=== PATIENT | female | born 1970 | race Two or more races ===

== ENCOUNTER 2020-03-31 09:25 | Outpatient (REF) | payer OTHER, SELFPAY ==
[2020-03-31 11:01] LABS: MANUAL DIFF FLAG NO
[2020-03-31 11:18] LABS: Estimated Average Glucose 303 mg/dL; Hemoglobin A1c % 12.2 %
[2020-03-31 11:32] LABS: Basophils Percent Auto 0.4 % (0-2); Eosinophils Absolute Auto 0.1 X10*3/uL (0.0-0.4); Eosinophils Percent Auto 1.3 % (0-4); Hematocrit 28.5 % (37-47); Hemoglobin 7.4 g/dl (12.0-16.0); Imm Gran Abs Auto 0.03 X10*3/uL (0.00-0.03); Imm Gran Pct Auto 0.3 % (0.0-0.4); Lymphocytes Percent Auto 21.8 % (20-40); Mean Corpuscular Hemoglobin 17.9 pg (27.0-33.0); Mean Platelet Volume 11.4 fL (9.4-12.3); Monocytes Absolute Auto 0.5 X10*3/uL (0.1-1.2); Monocytes Percent Auto 5.4 % (2-11); NRBC Pct Auto 0.2 /100WBC (0.0-0.2); Neutrophils Absolute Auto 6.3 X10*3/uL (2.0-8.3); Neutrophils Percent Auto 70.8 % (45-73); Platelet Count 352 X10*3/uL (160-400); Red Blood Count 4.13 X10*6/uL (4.20-5.50); Red Cell Distribution Width 20.5 % (11.0-16.0); White Blood Count 8.9 X10*3/uL (4.8-10.8)
[2020-03-31 11:47] LABS: Alanine Aminotransferase 91 U/L (0-31); Albumin Level 3.9 g/dL (3.5-5.0); Alkaline Phosphatase 81 U/L (39-117); Anion Gap 14 (12-20); Aspartate Amino Transferase 141 U/L (5-31); Bilirubin Total 0.9 mg/dL (0.0-1.0); Blood Urea Nitrogen 11 mg/dL (9-16); Calcium 8.7 mg/dL (8.4-10.2); Carbon Dioxide 25 mmol/L (22-29); Chloride 99 mmol/L (96-108); Estimated Glomerular Filt Rate > 60; Magnesium 1.9 mg/dL (1.6-2.6); Potassium 4.5 mmol/l (3.3-5.1); Sodium 133 mmol/L (135-145); Total Protein 6.6 g/dL (6.5-8.0)
[2020-03-31 11:55] LABS: Glucose Fasting 401 mg/dL (60-99)
[2020-04-07 02:47] LABS: Fructosamine 454 umol/L (205-285)
== END 2020-03-31 09:26 | disposition home or self-care (01) ==
LOC: HO.WFDLDS 09:25
PROVIDERS: Visit Provider Family Medicine
DX: E11.65 Type 2 diabetes mellitus with hyperglycemia (principal); R53.81 Other malaise; R53.83 Other fatigue; Z00.00 Encounter for general adult medical examination without abnormal findings; R73.9 Hyperglycemia, unspecified
CPT/HCPCS: 36415; 80053; 82985; 83036; 83735; 85025

== ENCOUNTER 2020-04-21 08:42 | Outpatient (REF) | payer OTHER, SELFPAY ==
[2020-04-21 10:53] LABS: Basophils Percent Auto 0.3 % (0-2); MANUAL DIFF FLAG SCAN; Monocytes Absolute Auto 0.5 X10*3/uL (0.1-1.2); NRBC Pct Auto 0.2 /100WBC (0.0-0.2); SCAN SMEAR FLAG 1
[2020-04-21 10:55] LABS: Eosinophils Absolute Auto 0.1 X10*3/uL (0.0-0.4); Eosinophils Percent Auto 1.2 % (0-4); Hematocrit 26.5 % (37-47); Imm Gran Abs Auto 0.02 X10*3/uL (0.00-0.03); Imm Gran Pct Auto 0.2 % (0.0-0.4); Lymphocytes Percent Auto 22.8 % (20-40); Mean Corpuscular Hemoglobin 17.6 pg (27.0-33.0); Mean Corpuscular Volume 67.4 fL (80-98); Mean Platelet Volume 11.1 fL (9.4-12.3); Monocytes Percent Auto 5.7 % (2-11); Neutrophils Absolute Auto 6.2 X10*3/uL (2.0-8.3); Neutrophils Percent Auto 69.8 % (45-73); Platelet Count 392 X10*3/uL (160-400); Red Blood Count 3.93 X10*6/uL (4.20-5.50); Red Cell Distribution Width 21.4 % (11.0-16.0)
[2020-04-21 11:07] LABS: Hemoglobin 6.9 g/dl (12.0-16.0); PLT ABN DIST 1
[2020-04-21 11:31] LABS: SLIDE REVIEW VERIFIED
[2020-04-21 11:42] LABS: TSH reflex Free T4 1.61 mIU/mL (0.32-4.0)
== END 2020-04-21 08:43 | disposition home or self-care (01) ==
LOC: HO.WFDLDS 08:42
PROVIDERS: PCP Family Medicine; Visit Provider Family Medicine
DX: D50.9 Iron deficiency anemia, unspecified (principal); R53.81 Other malaise; R53.83 Other fatigue; Z00.00 Encounter for general adult medical examination without abnormal findings
CPT/HCPCS: 36415; 84443; 85025; 85060

== ENCOUNTER 2020-04-22 10:00 | Emergency (ER) | payer OTHER, SELFPAY ==
[2020-04-22] VITALS (10 sets, daily range): BP systolic 102–139; BP diastolic 51–77; PULSE 91–103; RESP 15–20; TEMP 36.6–37.5; O2SAT 100
--- NOTE | 2020-04-22 10:32 | ECG_ITS ---
Test Reason : WEAKNESS Blood Pressure : / mmHG Vent. Rate : 100 BPM Atrial Rate : 100 BPM P-R Int : 158 ms QRS Dur : 076 ms QT Int : 330 ms P-R-T Axes : 054 009 016 degrees QTc Int : 425 ms Normal sinus rhythm Normal ECG No previous ECGs available Referred By: Radha Cronin Electronically Signed By:Rolf Bravo
--- NOTE | 2020-04-22 10:54 | ED_ITS ---
HPI - General Adult General Chief complaint: Weakness Time Seen by Provider: 04/22/20 10:53 Source: patient Mode of arrival: ambulatory Limitations: no limitations History of Present Illness HPI narrative: sent for transfusion thought she was going to have one in short stay but orders not in, here for transfusion Hgb 6.9, this will be second transfusion has hx of heavy menses, no bleeding since IUD 1.5 weeks ago, iron is hard for her to take Onset (ago): week(s) Severity: moderate Pain Consistency: constant Relieving factors: rest Exacerbating factors: movement Associated symptoms: malaise and shortness of breath Treatments prior to arrival: none Related Data Home Medications Medication Instructions Recorded Confirmed clonazepam 0.5 mg tablet 0.5 mg PO BID PRN 03/30/20 ibuprofen 800 mg tablet 800 mg PO Q8H 03/30/20 levothyroxine 200 mcg tablet 250 mcg PO DAILY tab 03/30/20 norethindrone acetate 5 mg tablet 0 mg PO 03/30/20 nortriptyline 25 mg capsule 25 mg PO BEDTIME 04/20/20 Previous Rx's Medication Instructions Recorded levothyroxine 125 mcg tablet 250 mcg PO DAILY 90 Days #180 tab 03/09/20 ferrous sulfate 325 mg (65 mg 325 mg PO DAILY 90 Days #90 tab 04/06/20 iron) tablet fluconazole 150 mg tablet 150 mg PO ONCE 1 Days #1 tab 04/06/20 metformin 500 mg tablet 1,000 mg PO BID 90 Days #360 tab 04/06/20 glipizide 5 mg tablet 5 mg PO DAILY 30 Days #30 tab 04/20/20 polyethylene glycol 3350 17 gram 17 g PO DAILY PRN 30 Days #30 ea 04/20/20 oral powder packet Allergies Allergy/AdvReac Type Severity Reaction Status Date / Time codeine [CODEINE] Allergy Unknown ITCHING Verified 04/06/20 08:42 morphine [MORPHINE] Allergy Unknown ITCHING Verified 04/06/20 08:42 Review of Systems Review of Systems: Constitutional : No Fever, No Chills, pos fatigue ENT/Mouth : No sore throat, No Rhinorrhea, No Swallowing Difficulty Eyes: No Eye Pain, No Swelling, No Redness Cardiovascular : No Chest Pain, positive SOB, No Orthopnea, no Edema Respiratory : No Cough, No Sputum, No Wheezing, positive dyspnea Gastrointestinal : No Nausea, No Vomiting, No Diarrhea, No abdominal Pain, No Hematochezia, No Melena Genitourinary : No Dysuria, No Urinary Frequency, No Hematuria Musculoskeletal : No joint pain, No Myalgias Skin : No Skin Lesions, No rash Neuro : No Weakness, No Numbness, No Dizziness, No Headache Psych : No Anxiety/Panic, No Depression Heme/Lymph: No Bruising, No Lymphadenopathy Endocrine : No Polyuria, No Polydipsia All other systems reviewed and are negative [facility] Past Medical History Attestation statement: The following information was validated with the patient. Medical History (Updated 04/22/20 @ 12:20 by Radha Cronin DO) Anemia Diabetes Social History Social History (Updated 04/22/20 @ 10:55 by Radha Cronin DO) Smoking Status: Never smoker Use of substances other than those prescribed or required for medical reasons: No Advance Directives: No Advance Directives Information Provided: Yes Physical Exam Vital Signs: Vital Signs: Last Vital Signs Temp 99.0 F 04/22/20 15:21 Pulse 92 04/22/20 15:21 Resp 15 04/22/20 15:21 BP 109/55 L 04/22/20 15:21 Pulse Ox 100 04/22/20 14:00 Appearance: Alert. Oriented X3. No acute distress. Eyes: Pupils equal, round and reactive to light. ENT: Pharynx normal. Neck: Normal inspection. Neck supple. CVS: Normal heart rate and rhythm. Pulses normal. Respiratory: No respiratory distress. Breath sounds normal. Abdomen: Soft and non-tender. Skin: Skin warm and dry. pale skin color. Normal skin turgor. Extremities: No lower extremity edema. No calf ttp Neuro: Oriented X 3. No motor deficit. No sensory deficit. Course Course Course Narrative: feels better after transfusion stable for DC Medical Decision Making MDM Narrative Medical decision making narrative: 49 yo female with known anemia here for transfusion due to chronic issue, her bleeding has resolved since IUD, will obtain labs, give 2 UPRBCs follow up with PCP Lab Data Result diagrams: 04/22/20 10:50 04/22/20 10:50 Labs: Lab Results 04/22/20 04/22/20 04/22/20 Range/Units 10:50 10:50 10:51 WBC 8.0 (4.8-10.8) X10*3/uL RBC 3.97 L (4.20-5.50) X10*6/uL Hgb 7.0 L* (12.0-16.0) g/dl Hct 26.6 L (37-47) % MCV 67.0 L (80-98) fL MCH 17.6 L (27.0-33.0) pg MCHC 26.3 L (31.0-35.0) g/dl RDW 21.1 H (11.0-16.0) % Plt Count 381 (160-400) X10*3/uL MPV 10.0 (9.4-12.3) fL Immature Gran % (Auto) 0.6 H (0.0-0.4) % Neut % (Auto) 73.1 H (45-73) % Lymph % (Auto) 19.0 L (20-40) % [place] % (Auto) 5.5 (2-11) % Eos % (Auto) 1.5 (0-4) % Baso % (Auto) 0.3 (0-2) % Lymph # (Auto) 1.5 (1.2-4.9) X10*3/uL [place] # (Auto) 0.4 (0.1-1.2) X10*3/uL Eos # (Auto) 0.1 (0.0-0.4) X10*3/uL Baso # (Auto) 0.0 (0.0-0.2) X10*3/uL Abs Immat Gran (auto) 0.05 H (0.00-0.03) X10*3/uL Absolute Neuts (auto) 5.9 (2.0-8.3) X10*3/uL Absolute Nucleated RBC 0.000 (0.0-0.012) X10*3/uL Nucleated RBC % (auto) 0.0 (0.0-0.2) /100WBC Sodium 138 (135-145) mmol/L Potassium 4.5 (3.3-5.1) mmol/l Chloride 102 (96-108) mmol/L Carbon Dioxide 27 (22-29) mmol/L Anion Gap 14 (12-20) BUN 10 (9-16) mg/dL Creatinine 0.68 (0.5-1.4) mg/dL Estim Creat Clear Calc TNP Estimated GFR > 60 Random Glucose 134 H (60-115) mg/dL Calcium 8.9 (8.4-10.2) mg/dL Total Bilirubin 0.8 (0.0-1.0) mg/dL AST 56 H (5-31) U/L ALT 48 H (0-31) U/L Alkaline Phosphatase 70 (39-117) U/L Total Protein 6.7 (6.5-8.0) g/dL Albumin 4.1 (3.5-5.0) g/dL Blood Type A Positive Antibody Screen NEGATIVE Crossmatch See Detail ECG Data Attestation: I personally reviewed and interpreted this ECG as follows: Interpretation: Rate: 100 Rhythm: sinus tachycardia [place]: normal Normal P waves. Normal [place]. Normal QRS complex. ST T wave : normal, no LOLI qTC: normal prior studies: no acute ischemia The study has been interpreted contemporaneously by me. . Critical Care Time Critical Care Time Critical Care Time: Yes Total Critical Care Time: 35 Attestation: patient received 2 UPRBCs over a few hours for hemoglobin 6.9 Discharge Plan Discharge Clinical Impression: Anemia due to blood loss Patient Disposition: Home, Self-Care Instructions: Anemia (ED), Blood Transfusion (DC) Additional Instructions: return to ED for any worsening symptoms or concerns Prescriptions: No Action levothyroxine 125 mcg tablet 250 mcg PO DAILY 90 Days Qty: 180 RF: 3 metformin 500 mg tablet 1,000 mg PO BID 90 Days Qty: 360 RF: 3 ferrous sulfate 325 mg (65 mg iron) tablet 325 mg PO DAILY 90 Days Qty: 90 RF: 0 fluconazole [Diflucan] 150 mg tablet 150 mg PO ONCE 1 Days Qty: 1 RF: 0 nortriptyline 25 mg capsule 25 mg PO BEDTIME RF: 0 polyethylene glycol 3350 [Miralax] 17 gram powder in packet 17 g PO DAILY PRN (Reason: constipation) 30 Days Qty: 30 RF: 2 glipizide 5 mg tablet 5 mg PO DAILY 30 Days Qty: 30 RF: 1 norethindrone acetate 5 mg tablet 0 mg PO RF: 0 clonazepam 0.5 mg tablet 0.5 mg PO BID PRNRF: 0 ibuprofen 800 mg tablet 800 mg PO Q8H RF: 0 levothyroxine 200 mcg tablet 250 mcg PO DAILY RF: 0 Referrals: Physician,Unknown [Primary Care Provider] - 2 days (as needed) Stand Alone Forms: Work/School Release
[2020-04-22 11:02] LABS: Basophils Percent Auto 0.3 % (0-2); Eosinophils Absolute Auto 0.1 X10*3/uL (0.0-0.4); Eosinophils Percent Auto 1.5 % (0-4); Hematocrit 26.6 % (37-47); Imm Gran Abs Auto 0.05 X10*3/uL (0.00-0.03); Imm Gran Pct Auto 0.6 % (0.0-0.4); Lymphocytes Absolute Auto 1.5 X10*3/uL (1.2-4.9); MANUAL DIFF FLAG NO; Mean Corpuscular HGB Conc 26.3 g/dl (31.0-35.0); Mean Corpuscular Hemoglobin 17.6 pg (27.0-33.0); Monocytes Absolute Auto 0.4 X10*3/uL (0.1-1.2); Monocytes Percent Auto 5.5 % (2-11); Neutrophils Absolute Auto 5.9 X10*3/uL (2.0-8.3); Neutrophils Percent Auto 73.1 % (45-73); Platelet Count 381 X10*3/uL (160-400); Red Blood Count 3.97 X10*6/uL (4.20-5.50); Red Cell Distribution Width 21.1 % (11.0-16.0)
--- NOTE | 2020-04-22 11:17 | PC.NURSE ---
TRIAGE, LABS , AND MEDS ALL ON PAPER DOCUMENTATION, SEE PAPERWORK FOR TIMES/ADMINISTRATION.
[2020-04-22 11:35] LABS: Alanine Aminotransferase 48 U/L (0-31); Albumin Level 4.1 g/dL (3.5-5.0); Alkaline Phosphatase 70 U/L (39-117); Anion Gap 14 (12-20); Aspartate Amino Transferase 56 U/L (5-31); Bilirubin Total 0.8 mg/dL (0.0-1.0); Blood Urea Nitrogen 10 mg/dL (9-16); Calcium 8.9 mg/dL (8.4-10.2); Carbon Dioxide 27 mmol/L (22-29); Chloride 102 mmol/L (96-108); Estimated Glomerular Filt Rate > 60; Glucose Random 134 mg/dL (60-115); Potassium 4.5 mmol/l (3.3-5.1); Sodium 138 mmol/L (135-145); Total Protein 6.7 g/dL (6.5-8.0)
--- NOTE | 2020-04-22 14:23 | PC.NURSE ---
first unit of blood continues to infuse, running slowly.
[2020-04-23 08:40] VITALS: BMI 27.4
== END 2020-04-22 19:45 | disposition home or self-care (01) ==
PROVIDERS: Emergency Provider Emergency Medicine
DX: D50.0 Iron deficiency anemia secondary to blood loss (chronic) (principal); E11.9 Type 2 diabetes mellitus without complications
CPT/HCPCS: 36415; 36430; 80053; 85025; 86850; 86900; 86901; 86920; 86923; 93005; 99283; 99285; 99291; P9016

== ENCOUNTER 2020-05-18 11:21 | Outpatient (REF) | payer OTHER, SELFPAY ==
[2020-05-18 13:50] LABS: Basophils Percent Auto 0.4 % (0-2); Eosinophils Absolute Auto 0.2 X10*3/uL (0.0-0.4); Eosinophils Percent Auto 1.8 % (0-4); Hematocrit 34.2 % (37-47); Hemoglobin 9.4 g/dl (12.0-16.0); Imm Gran Abs Auto 0.03 X10*3/uL (0.00-0.03); Imm Gran Pct Auto 0.3 % (0.0-0.4); Lymphocytes Absolute Auto 2.2 X10*3/uL (1.2-4.9); Lymphocytes Percent Auto 21.6 % (20-40); Mean Corpuscular HGB Conc 27.5 g/dl (31.0-35.0); Mean Corpuscular Hemoglobin 20.4 pg (27.0-33.0); Mean Corpuscular Volume 74.3 fL (80-98); Mean Platelet Volume 10.5 fL (9.4-12.3); Monocytes Absolute Auto 0.6 X10*3/uL (0.1-1.2); Monocytes Percent Auto 6.2 % (2-11); Neutrophils Percent Auto 69.7 % (45-73); Platelet Count 467 X10*3/uL (160-400); Red Cell Distribution Width 26.6 % (11.0-16.0)
[2020-05-18 13:52] LABS: MANUAL DIFF FLAG NO
[2020-05-18 14:34] LABS: Anion Gap 15 (12-20); Blood Urea Nitrogen 12 mg/dL (9-16); Calcium 9.5 mg/dL (8.4-10.2); Carbon Dioxide 28 mmol/L (22-29); Chloride 103 mmol/L (96-108); Estimated Glomerular Filt Rate > 60; Glucose Fasting 117 mg/dL (60-99); Iron 22 mcg/dL (30-160); Percent Iron Saturation 5 % (15-50); Potassium 5.2 mmol/l (3.3-5.1); Sodium 141 mmol/L (135-145); Total Iron Binding Capacity 408 mcg/dL (228-428); Unsaturated Iron Binding 386 ug/dL
== END 2020-05-18 11:22 | disposition home or self-care (01) ==
LOC: HO.WFDLDS 11:21
PROVIDERS: PCP Family Medicine; Visit Provider Family Medicine
DX: E11.65 Type 2 diabetes mellitus with hyperglycemia (principal); D50.9 Iron deficiency anemia, unspecified
CPT/HCPCS: 36415; 80048; 83540; 85025

== ENCOUNTER → 2020-05-29 09:04 | Outpatient (BNVA) | payer OTHER, SELFPAY | PROVIDERS: PCP Family Medicine; Referring Provider Family Medicine; Visit Provider Internal Medicine Endocrinology, Diabetes & Metabolism | DX: E03.8 Other specified hypothyroidism (principal); E06.3 Autoimmune thyroiditis; E66.01 Morbid (severe) obesity due to excess calories | CPT/HCPCS: 99202 ==

== ENCOUNTER 2020-05-29 10:23 | Outpatient (REF) | payer OTHER, SELFPAY ==
[2020-05-29 15:00] LABS: Free T4 (Free Thyroxine) 1.25 ng/dL (0.71-1.85); Thyroid Stimulating Hormone 0.63 uIU/mL (0.32-4.0); Vitamin D 25-OH Total 27.1 ng/mL (>30)
[2020-05-29 15:02] LABS: Vitamin B12 218 pg/mL (200-900)
[2020-05-30 13:47] LABS: Immunoglobulin A 269 mg/dL (47-310)
[2020-06-02 03:17] LABS: Transglutaminase Ab IgG 1 U/mL
[2020-06-03 11:57] LABS: Endomysial IgA Antibody Negative (Negative)
== END 2020-05-29 10:24 | disposition home or self-care (01) ==
LOC: HO.10HDL 10:23
PROVIDERS: Visit Provider Internal Medicine Endocrinology, Diabetes & Metabolism
DX: E66.01 Morbid (severe) obesity due to excess calories (principal); E03.8 Other specified hypothyroidism; E06.3 Autoimmune thyroiditis
CPT/HCPCS: 36415; 82306; 82607; 82784; 83516; 84439; 84443; 86255; 86256

== ENCOUNTER 2020-06-04 12:31 | Outpatient (REF) | payer OTHER, SELFPAY ==
--- NOTE | ~2020-06-04 | US_ITS ---
EXAMINATION: US THYROID CLINICAL INFORMATION: Hyperthyroidism. COMPARISON: None TECHNIQUE: Linear transducer grayscale and color Doppler examination with attention to the region of the thyroid. FINDINGS: SIZE: Measurements of the thyroid lobes and nodules are given in sagittal, anteroposterior and transverse dimensions respectively. Right Thyroid Lobe: 5.1 x 1.7 x 1.6 cm, volume 7.0 mL. Parenchyma: The gland echotexture is heterogeneous. Thyroid vascularity is normal. Left Thyroid Lobe: 6.0 x 2.5 x 1.0 cm, volume 7.7 mL. Parenchyma: The gland echotexture is heterogeneous. Thyroid vascularity is normal. Isthmus: 0.25 cm in maximum AP dimension. Estimated total number of nodules greater than or equal to 1 cm: one. Advanced Practice Nurse Psychotherapist nodules are described as follows: 1. Location: Right mid pole. Size: 0.7 x 0.4 x 0.5 cm, volume 0.07 mL. Nodule characteristics: Composition: Solid (2). Echogenicity: Hyperechoic (1). Shape: Not taller than wide (0). Margins: Smooth (0). Echogenic Foci: None (0). ACR TI-RADS total points: 4 ACR TI-RADS category: 4 2. Location: Left lower pole. Size: 1.2 x 0.7 x 0.5 cm, volume 0.2 mL. Nodule characteristics: Composition: Solid (2). Echogenicity: Hyperechoic (1). Shape: Taller than wide (3). Margins: Ill-defined (0). Echogenic Foci: None (0). ACR TI-RADS total points: 7 ACR TI-RADS category: 5 NODES: No lymphadenopathy is seen in the tissue surrounding the thyroid gland. US/US thyroid IMPRESSION: Heterogenous thyroid gland with two nodules in the right midpole and left lower pole. Nodule in the left lower pole is very suspicious. Recommend a fine-needle aspiration or short term 6 month follow-up. ACR TI-RADS RECOMMENDATIONS: Ultrasound-guided fine-needle aspiration, followup ultrasound, no further follow up. * TR1 (0 point) and TR 2 (2 points): No FNA or follow up * TR3 (3 points): FNA if more than or equal to 2.5 cm in maximum dimension, follow up in 1, 3 and 5 years if 1.5 to 2.4 cm in maximum dimension. * TR4 (4-6 points): FNA if more than or equal to 1.5 cm in maximum dimension, follow up in 1, 2, 3 and 5 years if 1 to 1.4 cm in maximum dimension. * TR5 (more than or equal to 7 points): FNA if more than or equal to 1 cm in maximum dimension, follow up every year for 5 years if 0.5 to 0.9 cm in maximum dimension. * TR3, TR4 or TR5 nodules that are below the size threshold for follow up receive no follow up.
== END 2020-06-04 12:32 | disposition home or self-care (01) ==
LOC: HO.US 12:31
PROVIDERS: Visit Provider Internal Medicine Endocrinology, Diabetes & Metabolism
DX: E06.3 Autoimmune thyroiditis (principal); E03.8 Other specified hypothyroidism
CPT/HCPCS: 76536

== ENCOUNTER 2020-06-11 08:38 | Outpatient (REF) | payer OTHER, SELFPAY ==
[2020-06-11 11:35] LABS: Imm Gran Abs Auto 0.02 X10*3/uL (0.00-0.03); Imm Gran Pct Auto 0.2 % (0.0-0.4); MANUAL DIFF FLAG SCAN; Mean Corpuscular Volume 75.5 fL (80-98); SCAN SMEAR FLAG 1
[2020-06-11 11:36] LABS: Basophils Percent Auto 0.4 % (0-2); Eosinophils Absolute Auto 0.1 X10*3/uL (0.0-0.4); Eosinophils Percent Auto 1.3 % (0-4); Hematocrit 37.5 % (37-47); Hemoglobin 10.4 g/dl (12.0-16.0); Lymphocytes Absolute Auto 1.9 X10*3/uL (1.2-4.9); Lymphocytes Percent Auto 19.9 % (20-40); Mean Corpuscular HGB Conc 27.7 g/dl (31.0-35.0); Mean Corpuscular Hemoglobin 20.9 pg (27.0-33.0); Mean Platelet Volume 10.2 fL (9.4-12.3); Monocytes Absolute Auto 0.5 X10*3/uL (0.1-1.2); Monocytes Percent Auto 5.7 % (2-11); Neutrophils Absolute Auto 6.9 X10*3/uL (2.0-8.3); Neutrophils Percent Auto 72.5 % (45-73); Platelet Count 416 X10*3/uL (160-400); Red Blood Count 4.97 X10*6/uL (4.20-5.50); Red Cell Distribution Width 25.1 % (11.0-16.0); White Blood Count 9.5 X10*3/uL (4.8-10.8)
[2020-06-11 11:37] LABS: PLT ABN DIST 1
[2020-06-11 11:38] LABS: SLIDE REVIEW VERIFIED
[2020-06-11 11:54] LABS: Estimated Average Glucose 120 mg/dL; Hemoglobin A1c % 5.8 %
[2020-06-11 12:01] LABS: Alanine Aminotransferase 28 U/L (0-31); Albumin Level 4.1 g/dL (3.5-5.0); Alkaline Phosphatase 62 U/L (39-117); Anion Gap 15 (12-20); Aspartate Amino Transferase 29 U/L (5-31); Bilirubin Total 0.2 mg/dL (0.0-1.0); Blood Urea Nitrogen 12 mg/dL (9-16); Calcium 9.4 mg/dL (8.4-10.2); Carbon Dioxide 28 mmol/L (22-29); Chloride 103 mmol/L (96-108); Estimated Glomerular Filt Rate > 60; Glucose Fasting 144 mg/dL (60-99); Potassium 4.9 mmol/L (3.3-5.1); Sodium 141 mmol/L (135-145); Total Protein 6.8 g/dL (6.5-8.0)
== END 2020-06-11 08:39 | disposition home or self-care (01) ==
LOC: HO.WFDLDS 08:38
PROVIDERS: Visit Provider Family Medicine
DX: E11.65 Type 2 diabetes mellitus with hyperglycemia (principal); D50.0 Iron deficiency anemia secondary to blood loss (chronic)
CPT/HCPCS: 36415; 80053; 83036; 85025

== ENCOUNTER 2020-06-20 10:18 | Outpatient (REF) | payer OTHER, SELFPAY ==
[2020-06-20 11:25] LABS: MANUAL DIFF FLAG NO
[2020-06-20 11:29] LABS: Basophils Percent Auto 0.2 % (0-2); Eosinophils Absolute Auto 0.1 X10*3/uL (0.0-0.4); Eosinophils Percent Auto 1.4 % (0-4); Hematocrit 38.7 % (37-47); Hemoglobin 11.2 g/dl (12.0-16.0); Imm Gran Abs Auto 0.03 X10*3/uL (0.00-0.03); Imm Gran Pct Auto 0.4 % (0.0-0.4); Lymphocytes Absolute Auto 1.9 X10*3/uL (1.2-4.9); Lymphocytes Percent Auto 21.6 % (20-40); Mean Corpuscular HGB Conc 28.9 g/dl (31.0-35.0); Mean Corpuscular Hemoglobin 21.9 pg (27.0-33.0); Mean Corpuscular Volume 75.6 fL (80-98); Mean Platelet Volume 10.2 fL (9.4-12.3); Monocytes Absolute Auto 0.4 X10*3/uL (0.1-1.2); Neutrophils Absolute Auto 6.1 X10*3/uL (2.0-8.3); Neutrophils Percent Auto 71.4 % (45-73); Platelet Count 441 X10*3/uL (160-400); Red Blood Count 5.12 X10*6/uL (4.20-5.50); Red Cell Distribution Width 23.9 % (11.0-16.0); White Blood Count 8.6 X10*3/uL (4.8-10.8)
[2020-06-20 11:40] LABS: D Dimer < 200 NG/ML
[2020-06-20 11:45] LABS: Estimated Average Glucose 117 mg/dL; Hemoglobin A1c % 5.7 %
[2020-06-20 11:54] LABS: Anion Gap 15 (12-20); Blood Urea Nitrogen 12 mg/dL (9-16); Calcium 9.3 mg/dL (8.4-10.2); Carbon Dioxide 29 mmol/L (22-29); Chloride 100 mmol/L (96-108); Estimated Glomerular Filt Rate > 60; Glucose Fasting 112 mg/dL (60-99); Potassium 4.6 mmol/L (3.3-5.1); Sodium 139 mmol/L (135-145)
== END 2020-06-20 10:19 | disposition home or self-care (01) ==
LOC: HO.LAB 10:18
PROVIDERS: PCP Family Medicine; Visit Provider Family Medicine
DX: E11.65 Type 2 diabetes mellitus with hyperglycemia (principal); M79.669 Pain in unspecified lower leg; D50.0 Iron deficiency anemia secondary to blood loss (chronic)
CPT/HCPCS: 36415; 80048; 83036; 85025; 85379

== ENCOUNTER → 2020-07-02 14:07 | Outpatient (BNVA) | payer OTHER, SELFPAY | PROVIDERS: PCP Family Medicine; Visit Provider Surgery Vascular Surgery | DX: I83.11 Varicose veins of right lower extremity with inflammation (principal) | CPT/HCPCS: 99202 ==

== ENCOUNTER 2020-07-16 10:24 | Outpatient (REF) | payer OTHER, SELFPAY ==
--- NOTE | ~2020-07-16 | US_ITS ---
EXAMINATION: RIGHT AND LEFT LOWER EXTREMITY VENOUS ULTRASOUND (REFLUX EXAM) CLINICAL INDICATION: Varicose veins of right lower extremity with inflammation COMPARISON: None. TECHNIQUE: Color flow triplex imaging and compression Doppler was performed to evaluate both the deep and the superficial systems bilaterally. To evaluate the superficial system, the examination was performed in the upright position. Color-flow Doppler ultrasound and compression ultrasound were utilized. In addition, maneuvers were utilized to demonstrate reflux. FINDINGS: 1. DEEP VENOUS ULTRASOUND OF THE RIGHT LOWER EXTREMITY: Respiratory variation, normal compression and augmented flow are noted in the right common femoral vein as well as the right popliteal vein and there is no evidence of deep venous thrombosis at these locations. There is no evidence of reflux in the deep system in either the common femoral vein or the popliteal vein. There is no evidence of a popliteal fossa cyst or popliteal artery aneurysm. 2. SUPERFICIAL ULTRASOUND WITH DOPPLER OF RIGHT LOWER EXTREMITY: The right great saphenous vein at the saphenofemoral junction measures 8 mm, at the midthigh 4 mm, thqyj-hhg-[id number] 5 mm, pisvn-xim-lzir 3 mm, at midcalf 2 mm and at the ankle measures 2 mm. The only reflux noted is at the midcalf where duration of insufficiency is 1.3 seconds. No insufficiency at the saphenofemoral junction identified. The right small saphenous vein measures 4 mm and shows no reflux. 3. DEEP VENOUS ULTRASOUND OF THE LEFT LOWER EXTREMITY: Respiratory variation, normal compression and augmented flow are noted in the left common femoral vein as well as the left popliteal vein and there is no evidence of deep venous thrombosis at these locations. There is no evidence of reflux in the deep system in either the common femoral vein or the popliteal vein. There is no evidence of a posterior fossa cyst or popliteal artery aneurysm. 4. SUPERFICIAL ULTRASOUND WITH DOPPLER OF LEFT LOWER EXTREMITY: Left great saphenous vein at the saphenofemoral junction measures 9 mm, at the midthigh 4 mm, vrdxx-pjo-xdpt 4 mm, gwxbn-ogo-huja 3 mm, at midcalf 3 mm and at the ankle measures 2 mm. There is no reflux demonstrated in the left great saphenous vein. The left small saphenous vein measures 4 mm and shows no reflux. There is an accessory greater saphenous vein seen in the midthigh having reflux of approximately 1.5 seconds and measuring 5 mm in diameter. No reflux in this vessel was seen at the saphenofemoral junction. No perforating veins with insufficiency are identified. Varicose veins are seen within the right proximal and distal thigh without reflux. At the level of the midcalf there are 2 mm varicose veins with reflux of greater than 3 seconds. US/US venous duplex LE BI IMPRESSION: 1. No evidence of reflux or thrombus in the common femoral veins or popliteal veins bilaterally. 2. No greater saphenous vein reflux seen at the saphenofemoral junctions. Region of insufficiency within the mid right calf and within the midthigh and a left accessory greater saphenous vein.
== END 2020-07-16 10:25 | disposition home or self-care (01) ==
LOC: HO.US 10:24
PROVIDERS: PCP Family Medicine; Visit Provider Surgery Vascular Surgery
DX: I83.11 Varicose veins of right lower extremity with inflammation (principal); I83.893 Varicose veins of bilateral lower extremities with other complications
CPT/HCPCS: 93970

== ENCOUNTER → 2020-07-28 13:40 | Outpatient (BNVA) | payer OTHER, SELFPAY | PROVIDERS: PCP Family Medicine; Visit Provider Surgery Vascular Surgery | DX: I83.11 Varicose veins of right lower extremity with inflammation (principal) | CPT/HCPCS: 99212 ==

== ENCOUNTER 2020-08-18 10:35 | Outpatient (REF) | payer OTHER, SELFPAY | END 2020-08-18 10:36 | disposition home or self-care (01) | LOC: HO.US 10:35 | PROVIDERS: Visit Provider Internal Medicine Endocrinology, Diabetes & Metabolism | DX: Z13.89 Encounter for screening for other disorder (principal) ==

== ENCOUNTER 2021-01-29 08:23 | Outpatient (REF) | payer OTHER, SELFPAY ==
[2021-01-29 11:21] LABS: MANUAL DIFF FLAG NO
[2021-01-29 11:35] LABS: Appearance Urine CLEAR; Color Urine YELLOW; Glucose Urine UA NEG (NEG); Leukocyte Esterase Urine NEG (NEG); Nitrite Urine NEG (NEG); Specific Gravity - Urine 1.015 (1.005-1.025); Urine Blood NEG (NEG); Urine Ketones NEG (NEG); Urine Protein NEG (NEG-TRACE)
[2021-01-29 11:38] LABS: Basophils Percent Auto 0.3 % (0-2); Eosinophils Absolute Auto 0.2 X10*3/uL (0.0-0.4); Eosinophils Percent Auto 1.8 % (0-4); Hematocrit 37.8 % (37-47); Hemoglobin 11.3 g/dl (12.0-16.0); Imm Gran Abs Auto 0.03 X10*3/uL (0.00-0.03); Imm Gran Pct Auto 0.3 % (0.0-0.4); Lymphocytes Absolute Auto 2.6 X10*3/uL (1.2-4.9); Lymphocytes Percent Auto 28.5 % (20-40); Mean Corpuscular HGB Conc 29.9 g/dl (31.0-35.0); Mean Corpuscular Hemoglobin 24.2 pg (27.0-33.0); Mean Corpuscular Volume 81.1 fL (80-98); Mean Platelet Volume 10.9 fL (9.4-12.3); Monocytes Absolute Auto 0.6 X10*3/uL (0.1-1.2); Monocytes Percent Auto 6.5 % (2-11); Neutrophils Absolute Auto 5.7 X10*3/uL (2.0-8.3); Neutrophils Percent Auto 62.6 % (45-73); Platelet Count 363 X10*3/uL (160-400); Red Blood Count 4.66 X10*6/uL (4.20-5.50); Red Cell Distribution Width 17.1 % (11.0-16.0)
[2021-01-29 11:46] LABS: Estimated Average Glucose 137 mg/dL; Hemoglobin A1c % 6.4 %
[2021-01-29 11:51] LABS: Creatinine Urine 67.49 mg/dL; Microalbum/Creatinine Ratio Ur 14.8 ug/mg cr
[2021-01-29 12:00] LABS: Alanine Aminotransferase 34 U/L (0-31); Albumin Level 3.9 g/dL (3.5-5.0); Alkaline Phosphatase 63 U/L (39-117); Anion Gap 14 (12-20); Aspartate Amino Transferase 30 U/L (5-31); Bilirubin Total 0.6 mg/dL (0.0-1.0); Blood Urea Nitrogen 10 mg/dL (9-16); Calcium 9.2 mg/dL (8.4-10.2); Carbon Dioxide 27 mmol/L (22-29); Chloride 102 mmol/L (96-108); Cholesterol 165 mg/dL; Estimated Glomerular Filt Rate > 60; Glucose Fasting 130 mg/dL (60-99); HDL Cholesterol 38 mg/dL; LDL Cholesterol Calculated 97 mg/dl; Potassium 4.7 mmol/L (3.3-5.1); Sodium 138 mmol/L (135-145); Total Protein 6.5 g/dL (6.5-8.0); Triglycerides 154 mg/dL
[2021-01-29 12:08] LABS: Vitamin D 25-OH Total 22.7 ng/mL (>30)
== END 2021-01-29 08:24 | disposition home or self-care (01) ==
LOC: HO.WFDLDS 08:23
PROVIDERS: PCP Family Medicine; Visit Provider Family Medicine
DX: Z00.00 Encounter for general adult medical examination without abnormal findings (principal); E55.9 Vitamin D deficiency, unspecified; E11.65 Type 2 diabetes mellitus with hyperglycemia; D50.9 Iron deficiency anemia, unspecified; E04.2 Nontoxic multinodular goiter; I10 Essential (primary) hypertension
CPT/HCPCS: 36415; 80053; 80061; 81003; 82043; 82306; 83036; 84443; 85025

== ENCOUNTER 2021-02-10 16:23 | Emergency (ER) | payer OTHER, SELFPAY ==
[2021-02-10 18:24] VITALS: BP 151/69; PULSE 91; RESP 18; TEMP 36.6; O2SAT 100; BMI 47.4
== END 2021-02-10 21:20 | disposition left against medical advice (07) ==
PROVIDERS: Emergency Provider Emergency Medicine; PCP Family Medicine
DX: R51.9 Headache, unspecified (principal)
CPT/HCPCS: 99281; 99282

== ENCOUNTER 2021-02-11 12:34 | Outpatient (REF) | payer OTHER, SELFPAY ==
[2021-02-11 14:17] LABS: MANUAL DIFF FLAG NO
[2021-02-11 14:23] LABS: Hematocrit 39.7 % (37-47); Hemoglobin 11.9 g/dl (12.0-16.0); Mean Corpuscular Hemoglobin 24.3 pg (27.0-33.0); Mean Corpuscular Volume 81.2 fL (80-98); Red Blood Count 4.89 X10*6/uL (4.20-5.50); White Blood Count 8.9 X10*3/uL (4.8-10.8)
[2021-02-11 14:24] LABS: Basophils Percent Auto 0.4 % (0-2); Eosinophils Absolute Auto 0.2 X10*3/uL (0.0-0.4); Imm Gran Abs Auto 0.03 X10*3/uL (0.00-0.03); Imm Gran Pct Auto 0.3 % (0.0-0.4); Lymphocytes Absolute Auto 2.2 X10*3/uL (1.2-4.9); Lymphocytes Percent Auto 25.1 % (20-40); Mean Platelet Volume 10.6 fL (9.4-12.3); Monocytes Absolute Auto 0.5 X10*3/uL (0.1-1.2); Neutrophils Percent Auto 67.2 % (45-73); Platelet Count 356 X10*3/uL (160-400); Red Cell Distribution Width 17.2 % (11.0-16.0)
== END 2021-02-11 12:35 | disposition home or self-care (01) ==
LOC: HO.WFDLDS 12:34
PROVIDERS: Visit Provider Family Medicine
DX: Z00.00 Encounter for general adult medical examination without abnormal findings (principal); R00.2 Palpitations; R55 Syncope and collapse; E11.65 Type 2 diabetes mellitus with hyperglycemia; R42 Dizziness and giddiness
CPT/HCPCS: 36415; 85025

== ENCOUNTER → 2021-02-19 14:05 | Outpatient (REF) | payer OTHER, SELFPAY ==
--- NOTE | 2021-02-19 14:10 | ECG_ITS ---
Hook-up date: 2021-02-19 14:17:00 Duration: 47:59:00 Test Indications: PALPITATIONS Medications: [id number] QRS complexes 30 Ventricular ectopics which represent <1 % of total QRS comp. 18 Supraventricular ectopics which represent <1 % of total QRS comp. * Paced QRS complexs which represent % of total QRS comp. VENTRICULAR ECTOPY 30 Isolated 0 Bigeminal Cycles 0 Couplets 0 Runs 0 Beats in Runs * Beats LONGEST at * BPM at :: -- * Beats FASTEST at * BPM at :: -- SUPRAVENTRICULAR ECTOPY 11 Isolated 1 Couplets 1 Runs 5 Beats in Runs 5 Beats LONGEST at 133 BPM at 06:44:49 2021-02-21 5 Beats FASTEST at 133 BPM at 06:44:49 2021-02-21 HEART RATES 63 MIN at 07:47:51 2021-02-20 99 AVG 140 MAX at 22:26:50 2021-02-20 LONGEST RR 1.1120 secs at 09:41:02 2021-02-20 S-T LEVELS Channel 1 - 128 mm at 14:17:00 2021-02-19 - 128 mm at 14:17:00 2021-02-19 Channel 2 - 128 mm at 14:17:00 2021-02-19 - 128 mm at 14:17:00 2021-02-19 Channel 3 - 128 mm at 03:33:61 -- - 128 mm at 03:33:61 Basic rhythm Normal sinus rhythm No long pause or profound bradycardia Frequent Sinus tachycardia , 45 % of time HR > 100 bpm Rare ectopics Patient reported multiple events correlated with NSR Referred By: Chucho Coombs Overread By: ALLISON FISHER MD
== END ==
LOC: HO.CARD 14:05
PROVIDERS: Visit Provider Family Medicine
DX: R00.2 Palpitations (principal); R55 Syncope and collapse
CPT/HCPCS: 93225; 93226

== ENCOUNTER 2021-04-16 12:01 | Outpatient (REF) | payer OTHER, SELFPAY ==
[2021-04-16 14:12] LABS: Syphilis Screen Nonreactive (Nonreactive)
[2021-04-19 08:22] LABS: HIV AB/AG Nonreactive (Nonreactive); HIV Num 1 0.06 S/CO (0.00-0.99); ~HepC Num1 0.09 S/CO (0.00-0.79); ~Hepatitis C Antibody Nonreactive (Nonreactive)
[2021-04-19 08:39] LABS: HBsAGNum1 0.39 S/CO (0.00-0.99); Hepatitis B Surface Antigen Negative (Negative)
== END 2021-04-16 12:02 | disposition home or self-care (01) ==
LOC: HO.LAB 12:01
PROVIDERS: PCP Family Medicine; Visit Provider Student in an Organized Health Care Education/Training Program
DX: Z11.4 Encounter for screening for human immunodeficiency virus [HIV] (principal); Z11.3 Encounter for screening for infections with a predominantly sexual mode of transmission
CPT/HCPCS: 36415; 86780; 86803; 87340; 87389

== ENCOUNTER → 2021-06-01 13:56 | Outpatient (BNVA) | payer OTHER, SELFPAY | PROVIDERS: PCP Family Medicine; Referring Provider Family Medicine; Visit Provider Internal Medicine | DX: R55 Syncope and collapse (principal); R00.0 Tachycardia, unspecified; E66.01 Morbid (severe) obesity due to excess calories; E11.8 Type 2 diabetes mellitus with unspecified complications; Z68.42 Body mass index [BMI] 45.0-49.9, adult | CPT/HCPCS: 99202 ==

== ENCOUNTER → 2021-06-02 16:01 | Outpatient (REF) | payer OTHER, SELFPAY | LOC: HO.SL 16:01 | PROVIDERS: PCP Family Medicine; Visit Provider Internal Medicine | DX: G47.33 Obstructive sleep apnea (adult) (pediatric) (principal); E66.9 Obesity, unspecified; R06.83 Snoring | CPT/HCPCS: 95806 ==

== ENCOUNTER → 2021-07-22 08:27 | Outpatient (REF) | payer OTHER, SELFPAY ==
--- NOTE | 2021-07-22 08:32 | CA_ITS ---
Transthoracic Echocardiogram Patient (Last, First, Middle): Giselle Rosa L Gender: Female Date of : 1970 Age: 51 Procedure Date: 07/22/2021 Procedure Type: Transthoracic Echocardiogram Location: OP Height: 175.26 cm Weight: 141.52 kg BSA: 2.50 m2 Heart Rate: bpm BP: 132 / [address] [employer] [address]: ANA Referring MD: Manuel Fischer MD Symptoms: R55 - Syncope and collapse Study Quality: Technically Difficult ECG Rhythm: Sinus Conclusions: - The left ventricular systolic function is normal. The calculated ejection fraction is 57% by biplane method. - No obvious valvular pathology seen on this study. Findings Procedure Information The patient declines contrast. Left Ventricle Normal left ventricular cavity size. There is mildly increased left ventricular wall thickness. The left ventricular systolic function is normal. The calculated ejection fraction is 57% by biplane method. There is no evidence of regional wall motion abnormalities. Diastolic function is normal for age. Right Ventricle Normal right ventricular cavity size and systolic function. Atria Both atria are normal in size. Aortic Valve The aortic valve was not well visualized. There is no aortic valve stenosis. There is no aortic valve regurgitation. Mitral Valve The mitral valve appears normal. There is mild mitral annular calcification. There is no mitral valve regurgitation. There is no mitral valve stenosis. Pulmonic Valve The pulmonic valve was not well visualized. Tricuspid Valve There is trace tricuspid valve regurgitation. The pulmonary artery systolic pressure is normal. Great Vessels The aortic annulus, sinuses of valsalva, asc aorta, and aortic arch are normal in size. Venous The inferior vena cava is normal in size and collapses greater than 50% with inspiration. Pericardium/Pleural There is no evidence of pericardial effusion. Prior Study Comparison No prior study available for comparison. Recommendations, Care & Conclusions No obvious valvular pathology seen on this study. Measurements 2D Linear Measurements IVSd: 1.06 0.6-0.9/0.6-1.0 cm LVIDd: 4.00 3.9-5.3/4.2-5.9 cm LVIDd Index: 1.60 2.4-3.2/2.2-3.1 cm/m2 LVIDs: 2.73 2.0-3.6 cm LVPWd: 1.09 0.7-1.1 cm LA Diam: 3.20 2.7-3.8/3.0-4.0 cm LAIDs Index: 1.28 1.5-2.3 cm/m2 LV Mass: 175.35 67-162/88-224 g LV Mass Index: 70.14 43-95/49-115 g/m2 LVOT Diam: 2.00 3.0+(-)1.3 cm 2D Systolic Function EF 4C: 59.40 >55% EF 2C: 50.00 >55% EF BiP: 56.50 >55% Mitral Valve MV Pk E: 0.65 MV PK A: 0.79 MV Decel Time: 151.00 E/A: 0.80 E'Lateral: 9.79 E'Medial: 6.74 E/E' Med: 9.60 E/E' Lat: 6.60 PHT: 44.00 MVA PHT: 5.00 Decel [place]: 4.29 Aortic Valve AoV Pk Alejandro: 1.65 AoV Mn Alejandro: 1.18 AoV VTI: 0.28 AoV Pk Grad: 11.00 Aov Mn Grad: 6.00 DONNA Cont.VTI: 2.30 LVOT LVOT Pk Alejandro: 1.09 LVOT Mn Alejandro: 0.67 LVOT VTI: 0.21 LVOT Pk Grad: 5.00 LVOT Mn Grad: 2.00 LVOT Diam: 2.00 LVOT Area: 3.14 Diastolic Function MV Pk E: 0.65 MV Pk A: 0.79 E/A: 0.80 E'Medial: 6.74 E/E' Med: 9.60 E' Laterial: 9.79 E/E' Lat: 6.60 Right Ventricle TAPSE (mm): 26.20 TVS' Alejandro: 14.80 Tricuspid Valve RA Press: 8.00 Great Vessels Aorta Sinus of Valsalva: 3.05 2.0-3.5 cm Ao Asc: 3.30 2.1-3.4 cm Ao Arch: 2.90 Updated in Other Vendor System with Status of Final Manuel Fischer MD electronically signed on 07/24/2021 11:12:28 AM with status of Final
== END ==
LOC: HO.CARD 08:27
PROVIDERS: Visit Provider Internal Medicine
DX: R55 Syncope and collapse (principal)
CPT/HCPCS: 93306

== ENCOUNTER 2022-03-16 09:42 | Outpatient (REF) | payer OTHER, SELFPAY ==
[2022-03-16 11:33] LABS: MANUAL DIFF FLAG NO
[2022-03-16 11:34] LABS: Basophils Percent Auto 0.5 % (0-2); Eosinophils Absolute Auto 0.1 X10*3/uL (0.0-0.4); Eosinophils Percent Auto 1.6 % (0-4); Hematocrit 40.1 % (37.0-47.0); Hemoglobin 12.3 g/dl (12.0-16.0); Imm Gran Abs Auto 0.03 X10*3/uL (0.00-0.03); Imm Gran Pct Auto 0.3 % (0.0-0.4); Lymphocytes Absolute Auto 2.3 X10*3/uL (1.2-4.9); Lymphocytes Percent Auto 26.4 % (20-40); Mean Corpuscular HGB Conc 30.7 g/dl (31.0-35.0); Mean Corpuscular Hemoglobin 24.7 pg (27.0-33.0); Mean Corpuscular Volume 80.5 fL (80.0-98.0); Mean Platelet Volume 11.3 fL (9.4-12.3); Monocytes Absolute Auto 0.6 X10*3/uL (0.1-1.2); Monocytes Percent Auto 6.4 % (2-11); Neutrophils Absolute Auto 5.7 x10*3/uL (2.0-8.3); Neutrophils Percent Auto 64.8 % (45-73); Platelet Count 330 X10*3/uL (160-400); Red Blood Count 4.98 X10*6/uL (4.20-5.50); White Blood Count 8.8 X10*3/uL (4.8-10.8)
[2022-03-16 12:27] LABS: Alanine Aminotransferase 83 U/L (0-31); Albumin Level 3.9 g/dL (3.5-5.0); Alkaline Phosphatase 82 U/L (39-117); Anion Gap 17 (12-20); Aspartate Amino Transferase 70 U/L (5-31); Bilirubin Total 0.4 mg/dL (0.0-1.0); Blood Urea Nitrogen 12 mg/dL (9-16); Calcium 9.3 mg/dL (8.4-10.2); Carbon Dioxide 27 mmol/L (22-29); Chloride 99 mmol/L (96-108); Cholesterol 166 mg/dL; Estimated Glomerular Filt Rate > 60; Glucose Random 307 mg/dL (60-115); HDL Cholesterol 37 mg/dL; LDL Cholesterol Calculated 93 mg/dl; Potassium 4.5 mmol/L (3.3-5.1); Sodium 138 mmol/L (135-145); Total Protein 6.9 g/dL (6.5-8.0); Triglycerides 182 mg/dL
[2022-03-16 12:43] LABS: Free T4 (Free Thyroxine) 1.27 ng/dL (0.71-1.85); Thyroid Stimulating Hormone 0.74 uIU/mL (0.32-4.0)
[2022-03-18 06:26] LABS: LDL Cholesterol Direct 111 mg/dL (<100)
[2022-03-18 06:32] LABS: Triiodothyronine T3 Total 104 ng/dL (76-181)
== END 2022-03-16 09:43 | disposition home or self-care (01) ==
LOC: HO.WFDLDS 09:42
PROVIDERS: Visit Provider Family Medicine
DX: Z00.00 Encounter for general adult medical examination without abnormal findings (principal); E03.8 Other specified hypothyroidism; E06.3 Autoimmune thyroiditis; D64.9 Anemia, unspecified; E66.01 Morbid (severe) obesity due to excess calories; E11.8 Type 2 diabetes mellitus with unspecified complications
CPT/HCPCS: 36415; 80053; 80061; 83721; 84439; 84443; 84480; 85025

== ENCOUNTER 2022-04-28 09:09 | Outpatient (REF) | payer OTHER, SELFPAY ==
[2022-04-28 11:50] LABS: HIV AB/AG Nonreactive (Nonreactive); HIV Num 1 0.05 S/CO (0.00-0.99)
[2022-04-29 09:03] LABS: Syphilis Screen Nonreactive (Nonreactive)
== END 2022-04-28 09:10 | disposition home or self-care (01) ==
LOC: HO.WFDLDS 09:09
PROVIDERS: Visit Provider Student in an Organized Health Care Education/Training Program
DX: Z11.4 Encounter for screening for human immunodeficiency virus [HIV] (principal); Z11.3 Encounter for screening for infections with a predominantly sexual mode of transmission
CPT/HCPCS: 36415; 86780; 87389

== ENCOUNTER 2022-07-12 14:03 | Outpatient (REF) | payer OTHER, SELFPAY ==
[2022-07-12 15:08] LABS: Influenza A PCR NEGATIVE (Negative); Influenza B PCR NEGATIVE (Negative); Resp Syncy Virus RNA Qual PCR NEGATIVE (Negative); SARS COV2 PCR INHOUSE NEGATIVE (Negative)
== END 2022-07-12 14:04 | disposition home or self-care (01) ==
LOC: HO.LNP 14:03
PROVIDERS: Visit Provider Physician Assistant
DX: Z20.822 Contact with and (suspected) exposure to COVID-19 (principal)
CPT/HCPCS: 0241U

== ENCOUNTER 2022-08-13 13:47 | Outpatient (REF) | payer OTHER, SELFPAY ==
[2022-08-13 14:12] LABS: Binax Internal Control QC Valid; Binax Now Covid-19 Ag Negative (Negative); Binax Performed by: HO.BONILM
== END 2022-08-13 13:48 | disposition home or self-care (01) ==
LOC: HO.HMGCLDS 13:47
PROVIDERS: PCP Family Medicine; Visit Provider Physician Assistant Medical
DX: Z20.822 Contact with and (suspected) exposure to COVID-19 (principal)
CPT/HCPCS: 87811; C9803

== ENCOUNTER 2022-09-14 14:17 | Outpatient (REF) | payer OTHER, SELFPAY ==
--- NOTE | ~2022-09-14 | XR_ITS ---
EXAMINATION: XR KNEE, RIGHT CLINICAL INFORMATION: Contusion of right knee. COMPARISON: None available. TECHNIQUE: Four views of the right knee. FINDINGS: There is loss of medial and patellofemoral compartment joint space with periarticular spurring. No bony erosive changes, loose bodies or bony erosive changes. No abnormal joint effusion. XR/XR knee RT 4V IMPRESSION: Mild degenerative changes medial and patellofemoral compartment. No visible acute fracture or dislocation seen.
== END 2022-09-14 14:18 | disposition home or self-care (01) ==
LOC: HO.HMGCX 14:17
PROVIDERS: PCP Family Medicine; Visit Provider Internal Medicine
DX: S90.01XA Contusion of right ankle, initial encounter (principal)
CPT/HCPCS: 73564

== ENCOUNTER 2022-10-11 08:32 | Outpatient (REF) | payer OTHER, SELFPAY ==
--- NOTE | ~2022-10-11 | MM_ITS ---
EXAMINATION: MM SCREENING DIGITAL BREAST TOMOSYNTHESIS, BILATERAL CLINICAL INFORMATION: Screening. Asymptomatic. The lifetime risk of breast cancer based on the Tyrer-Cuzick Model is 8%. COMPARISON: Mammography: 01/10/2019, 11/27/2015 TECHNIQUE: Digital breast tomosynthesis is performed in both the craniocaudal and mediolateral oblique views along with computer-aided detection (CAD). Synthesized 2D images are generated from the tomosynthesis. Additional bilateral CC and views are provided. FINDINGS: There are scattered areas of fibroglandular density (ACR BI-RADS breast composition Category b). There are no significant masses, abnormal calcifications, or other abnormalities. Parenchymal pattern is similar to prior studies. There is no developing density or architectural abnormality. The axilla and skin contours are unremarkable. No significant changes. MM/MM tomosynthesis screening BI IMPRESSION: No mammographic evidence of malignancy. ASSESSMENT: BI-RADS 1: Negative RECOMMENDATION: Routine annual mammography screening. This patient's information was entered into a reminder system with a target due date for their next mammogram.
== END 2022-10-11 08:33 | disposition home or self-care (01) ==
LOC: HO.MAMMO 08:32
PROVIDERS: PCP Family Medicine; Visit Provider Family Medicine
DX: Z12.31 Encounter for screening mammogram for malignant neoplasm of breast (principal)
CPT/HCPCS: 77063; 77067

== ENCOUNTER 2022-10-25 14:05 | Outpatient (REF) | payer OTHER, SELFPAY ==
[2022-10-25 16:05] LABS: Alanine Aminotransferase 70 U/L (0-31); Albumin Level 4.3 g/dL (3.5-5.0); Alkaline Phosphatase 98 U/L (39-117); Anion Gap 15 (12-20); Aspartate Amino Transferase 69 U/L (5-31); Bilirubin Total 0.7 mg/dL (0.0-1.0); Blood Urea Nitrogen 16 mg/dL (9-16); Calcium 10.1 mg/dL (8.4-10.2); Carbon Dioxide 28 mmol/L (22-29); Chloride 103 mmol/L (96-108); Estimated Glomerular Filt Rate > 60; Glucose Random 228 mg/dL (60-115); Potassium 4.6 mmol/L (3.3-5.1); Sodium 141 mmol/L (135-145)
== END 2022-10-25 14:06 | disposition home or self-care (01) ==
LOC: HO.LAB 14:05
PROVIDERS: PCP Family Medicine; Visit Provider Family Medicine
DX: R74.8 Abnormal levels of other serum enzymes (principal)
CPT/HCPCS: 36415; 80053

== ENCOUNTER 2022-11-21 10:27 | Outpatient (AMB) | payer OTHER, SELFPAY ==
--- NOTE | 2022-11-21 11:21 | MHC.OFFWIV ---
Intake Vital Signs 11/21/22 11:23 Height 5 ft 8 in BP 150/80 H Blood Pressure Location Lt brachial Position Sitting Pulse 111 H Pulse Source Pulse Oximeter Temp 97.9 F Temp Source Temporal Artery Scan Pulse Oximetry (%) 98 Intake Visit Reasons: EP, Runny Nose, Cough, Body Ache [phone] Intake Note: pt is here for c/o runnynose, cough, body aches and headaches since monday morning Patient Tobacco Use Status: Former Tobacco user Quit Date: 5 years ago Allergies codeine [CODEINE] Allergy (Unknown, Verified 11/21/22 11:22) ITCHING morphine [MORPHINE] Allergy (Unknown, Verified 11/21/22 11:22) ITCHING venom-honey bee Adverse Reaction (Severe, Verified 11/21/22 11:22) Anaphylaxis Do you need a note to return to daycare/school/sports/work: Yes HPI HPI Comments History of Present Illness Details 52-year-old female presents to the office for a sick visit. Reporting symptoms of sinus congestion, sore throat and difficulty swallowing. Low-grade fever. No family member is sick. No recent travel. Patient reports symptoms of malaise and fatigue. [facility] Medical History Anemia Diabetes Hypothyroidism Morbid obesity Non-toxic multinodular goiter Surgical History Hx of cholecystectomy Family History Father No problems noted. Mother Hypothyroid Multiple sclerosis Sister No problems noted. Daughter No problems noted. Daughter No problems noted. Social History Housing: Apartment Alcohol intake: never Patient Tobacco Use Status: Former Tobacco user Quit Date: 5 years ago e-Cigarette/Vaping Use: Never Used Second Hand Smoke Exposure: No service: No Current occupational status: employed Current occupational exposures/hazards: No Cognitive needs: No Hearing needs: No Vision needs: No Physical Exam Vital Signs: Last Vital Signs Temp 97.9 F 11/21/22 11:23 Pulse 111 H 11/21/22 11:23 BP 150/80 H 11/21/22 11:23 Pulse Ox 98 07/17/23 11:23 Const General: cooperative and healthy appearing Nutritional Appearance: well nourished Orientation/consciousness: patient oriented x3 Limitations: no limitations HEENT Head: Yes normal to inspection Eyes General: appearance normal, both eyes and all related structures Neck Neck: Yes normal visual inspection Chest Chest palpation & inspection: normal palpation of entire chest wall Resp Effort & Inspection: normal respiratory effort Neuro General: patient oriented x3 Assessment & Plan Assessment & Plan (1) Upper respiratory tract infection: Code(s): J06.9 - Acute upper respiratory infection, unspecified Plan: Azithromycin called in. Increase fluid intake. Tylenol for aches and pains. If symptoms worsen, follow-up here for a recheck. Orders: Orders SARS-CoV2/FLU/RSV Today R43.9 - Unspecified disturbances of smell and taste Coding Level of Care Code Est Pt Level 3 (25315) Diagnoses Upper respiratory tract infection J06.9
[2022-11-21 11:23] VITALS: BP 150/80; PULSE 111; TEMP 36.6; O2SAT 98
== END 2022-11-21 12:10 | disposition home or self-care (01) ==
PROVIDERS: PCP Family Medicine; Visit Provider Internal Medicine
DX: J06.9 Acute upper respiratory infection, unspecified (principal)
CPT/HCPCS: 99213

== ENCOUNTER 2022-11-21 13:43 | Outpatient (REF) | payer OTHER, SELFPAY ==
[2022-11-21 15:12] LABS: Influenza A PCR NEGATIVE (Negative); Influenza B PCR NEGATIVE (Negative); Resp Syncy Virus RNA Qual PCR NEGATIVE (Negative); SARS COV2 PCR INHOUSE NEGATIVE (Negative)
== END 2022-11-21 13:44 | disposition home or self-care (01) ==
LOC: HO.LNP 13:43
PROVIDERS: Visit Provider Internal Medicine
DX: Z20.822 Contact with and (suspected) exposure to COVID-19 (principal); R43.9 Unspecified disturbances of smell and taste
CPT/HCPCS: 0241U

== ENCOUNTER 2023-02-23 13:45 | Outpatient (AMB) | payer SELFPAY ==
--- NOTE | 2023-02-23 13:50 | MHC.PC.OV ---
Vital Signs 02/23/23 13:53 Height 5 ft 8 in Weight 303 lb 8 oz BMI 46.1 BP 134/76 Blood Pressure Location Lt brachial Position Sitting Respiration 13 Pulse 89 Pulse Source Pulse Oximeter Temp 97.6 F Temp Source Temporal Artery Scan Pulse Oximetry (%) 98 Oxygen Delivery Method Room Air Intake Visit Reasons: ? cellulitis, right leg Intake Note: Patient states that azithromyacin didnt work last time it took 2 rounds in order for it to be effective. Patient would like something else prescribed. Property Controller Required: No Accompanied by: Self / Same As Patient Allergies codeine [CODEINE] Allergy (Unknown, Verified 02/23/23 14:13) ITCHING morphine [MORPHINE] Allergy (Unknown, Verified 02/23/23 14:13) ITCHING venom-honey bee Adverse Reaction (Severe, Verified 02/23/23 14:13) Anaphylaxis Medication List - Last Reconciled 02/23/23 by Rustam Kaur CNP ascorbic acid (vitamin C) 1 g PO Q6H blood sugar diagnostic (FreeStyle Lite Strips) DX: E11.9, test blood sugar 2 times a day, 90 days blood-glucose meter (FreeStyle Lite Meter kit) DX: E11.9, test blood sugar 2 times a day, duration 999 days cholecalciferol (vitamin D3) 25 mcg PO DAILY clonazepam 0.5 mg PO BID PRN dulaglutide 1.5 mg (0.5 mL) subcut QWEEK 28 days elderberry fruit-honey 0.7-3 gram/7.5 mL mL PO glipizide ER 10 mg PO DAILY 90 days ibuprofen 800 mg PO Q8H lancets (FreeStyle Lancets) As directed levothyroxine 250 mcg (2 x 125 mcg) PO DAILY 90 days meloxicam 15 mg PO DAILY metformin 1000 mg a.m. and 500 mg p.m. PO 2 times a day; 90 days multivit with min-folic acid 200 mcg (Adult Multivitamin Gummies) tabs PO nortriptyline 25 mg PO BEDTIME nut.tx.gluc.intol,lac-free,soy (Glucerna Shake oral liquid) 1 ea PO DAILY 30 days polyethylene glycol 3350 (Miralax) 17 grams PO DAILY PRN 30 days sumatriptan succinate take 1 tab at onset of headache; if no relief may repeat 1 tab after at least 2 hrs; max = 4 tabs/24 hr PO triamcinolone acetonide 0.5% 1 appl topical BID 10 days Tobacco use date assessed: 02/23/23 Dental Screening Dental Screen Date: 02/23/23 Did you have a dental visit in the last 12 months?: Yes Did you have a dental problem in the last 6 months where you did not have access to dental care?: No Was dental information given to patient?: Patient has dentist HPI HPI Comments History of Present Illness Details 52-year-old female presents with complaints of cellulitis to her right lower leg. She notes that the area developed a pimple-like lesion yesterday, followed by erythema, warmth, and throbbing sensation. She expressed small amount of white discharge from the lesion. She denies injury or trauma to the area. No fever, chills, body aches, fatigue, weakness. No pain at this time. [facility] Medical History Non-toxic multinodular goiter Morbid obesity Hypothyroidism Diabetes Anemia Surgical History Hx of cholecystectomy Family History Father No problems noted. Mother Hypothyroid Multiple sclerosis Sister No problems noted. Daughter No problems noted. Daughter No problems noted. Social History Housing: Apartment Alcohol intake: never Patient Tobacco Use Status: Former Tobacco user Quit Date: 5 years ago e-Cigarette/Vaping Use: Never Used Second Hand Smoke Exposure: No service: No Current occupational status: employed Current occupation: @ [employer] Current occupational exposures/hazards: No Cognitive needs: No Hearing needs: No Vision needs: No Questionnaire DANIEL-7 AMB Questionnaire DANIEL-7 Date DANIEL - 7 assessed: 07/23/21 Source: Developed by Drs. Raghu Thompson, Naheed Calles, Liban Loza and colleagues, with an educational brandon from [employer]. Review of Systems Const Details: Const Denies chills, Denies fatigue, Denies fever(s), Denies headache(s) and Denies weakness ENT Denies dizziness and Denies headache(s) Card Denies chest pain, Denies lightheadedness, Denies dyspnea and Denies other (Palpitations) Resp Denies cough, Denies dyspnea, Denies wheezing and Denies other ( shortness of breath) GI Denies abdominal pain, Denies melena, Denies hematochezia, Denies change in bowel habits, Denies dyspepsia and Denies nausea Denies hematuria and Denies dysuria Musc Denies abnormal gait, Denies myalgias, Denies arthralgias, Denies numbness and Denies tingling Skin/Breast Reports as per HPI Neuro Denies abnormal gait, Denies dizziness, Denies headache(s), Denies memory loss, Denies numbness, Denies Sensory deficit (Neuro), Denies tingling and Denies weakness Psych Denies anxiety, Denies depression, Denies memory loss Endo Denies cold intolerance, Denies fatigue, Denies heat intolerance, Denies polydipsia and Denies polyuria Aller/Immun Denies wheezing Physical exam (Primary Care) Vital Signs: Last Vital Signs Temp 97.6 F 02/23/23 13:53 Pulse 89 02/23/23 13:53 Resp 13 02/23/23 13:53 BP 134/76 02/23/23 13:53 Pulse Ox 98 02/23/23 13:53 Oxygen Delivery Method Room Air 02/23/23 13:53 BMI result Body Mass Index 46.1 Tobacco/Smoking Status: Tobacco use Status Tobacco use date assessed 02/23/23 02/23/23 14:04 Patient Tobacco Use Status Former Tobacco user 02/23/23 13:52 e-Cigarette/Vaping Use Never Used 02/23/23 13:52 Const Other: General: no acute distress and well developed Nutritional Appearance: well nourished Orientation/consciousness: patient oriented x3 HENMT Head: Yes normocephalic and Yes atraumatic Eyes General: appearance normal, both eyes and all related structures Pupils: Equal, round and reactive pupils present EOM: EOMs intact bilaterally Resp Effort & Inspection: normal respiratory effort Auscultation: clear to auscultation bilaterally Cardio Rate: regular rate Rhythm: regular rhythm Heart sounds: S1 normal heart sound present, S2 normal heart sound present, no gallops, no murmurs and no rubs GI Palpation (GI): No Abdominal aortic bruit present, Soft to palpation, nontender, No hepatosplenomegaly present and No Rebound tenderness present Auscultation: normal bowel sounds General: Yes no CVA tenderness Back/Spine/Pelvis Back: no CVA tenderness Cervical Spine: cervical ROM normal and No Cervical spine tenderness Thoracic/Lumbar Spine: thoraco-lumbar ROM normal, No pain with thoraco-lumbar ROM, No thoracic spinal tenderness and No lumbar spinal tenderness Extrem General: Yes normal to inspection, No edema and No calf tenderness Skin General: warm and dry. Normal skin color. Normal skin turgor Small, intact, pimple-like lesion with surrounding mild erythema noted to the anterior right lower leg. No drainage, Neuro General: patient oriented x3, gait normal and no focal neuro deficit Cranial nerves: Yes Equal, round and reactive pupils present Cognition (Neuro): normal cognition Gait exam (Neuro): Normal gait present Sensory Exam: No Sensory deficit (Neuro) Psych Appearance: grossly normal Affect: normal affect Attitude: cooperative Thought process: Normal thought process present Assessment and Plan Assessment & Plan (1) Skin lesion of right leg: Code(s): L98.9 - Disorder of the skin and subcutaneous tissue, unspecified Plan: Presents with skin irritation to her right lower leg for the past 2 days Small, intact, pimple-like lesion with surrounding mild erythema noted to the anterior right lower leg. No drainage, warmth or overt infection Likely formation of an abscess. Cellulitis is also possible Cephalexin ordered. Take as prescribed Warm/cool compresses encouraged May take Tylenol ibuprofen as needed for pain or discomfort Return with worsening or new signs and symptoms Verbalized understanding and agreed with treatment plan. Medications: New cephalexin 500 mg PO BID 7 days 14 tabs 0RF Coding Level of Care Code Est Pt Level 3 (75970) Diagnoses Skin lesion of right leg L98.9
[2023-02-23 13:53] VITALS: BP 134/76; PULSE 89; RESP 13; TEMP 36.4; O2SAT 98; BMI 46.1
== END 2023-02-23 14:21 | disposition home or self-care (01) ==
PROVIDERS: PCP Family Medicine; Visit Provider Nurse Practitioner Family
DX: L98.9 Disorder of the skin and subcutaneous tissue, unspecified (principal)
CPT/HCPCS: 99213

== ENCOUNTER 2023-09-30 13:46 | Emergency (ER) | payer OTHER, SELFPAY ==
--- NOTE | ~2023-09-30 | XR_ITS ---
EXAMINATION: XR KNEE, LEFT CLINICAL INFORMATION: Pain COMPARISON: None available. TECHNIQUE: Four views of the left knee. FINDINGS: No effusion. Moderate joint compartment narrowing medial tibial femoral joint compartment. Generalized spurring. No radiopaque loose body or focal bony lesion. XR/XR knee LT 3V IMPRESSION: Osteoarthritis as above. No effusion.
--- NOTE | ~2023-09-30 | US_ITS ---
EXAMINATION: US VENOUS ULTRASOUND WITH DOPPLER LOWER EXTREMITY, LEFT CLINICAL INFORMATION: calf pain COMPARISON: DVT US 07/16/2020 TECHNIQUE: Ultrasound of the deep veins is performed from the hip to the calf with compression sonography and color and pulse Doppler assessment. Spectral analysis with color-flow imaging is performed. FINDINGS: There is normal venous compression and respiratory variation and augmented flow. The visualized common femoral vein, superficial femoral vein, profunda femoral vein, popliteal vein, and the trifurcation region shows no evidence of deep venous thrombosis. Dai's cyst measuring 4.7 x 1.1 x 0.9 cm. US/US venous duplex LE LT IMPRESSION: No DVT demonstrated in the left lower extremity.
[2023-09-30 14:13] VITALS: BP 149/86; PULSE 95; RESP 18; TEMP 36.3; O2SAT 99; BMI 44.5
--- NOTE | 2023-09-30 14:14 | ED.LOWEXIN ---
HPI - Extremity Injury (Lower) General Chief Complaint: Extremity Injury, Lower Stated Complaint: l knee inj Time Seen by Provider: 09/30/23 18:57 Source: patient and RN notes reviewed Mode of arrival: ambulatory Limitations: no limitations History of Present Illness ED Provider: Yenifer Quinones PA-C HPI Narrative: This is a [id number]-female, with hx of chronic left knee pain, presenting to the ER with complaints of left knee pain x 2 weeks. Pt states that she previously sprained her knee years ago. Reporting two weeks ago she flew to and from [place] and accidentally twisted her left knee while getting off the plane. She has felt instability in her left knee, with pain and fullness sensation behind her left knee and into her left calf. She has been wearing a knee brace with some relief. Has been taking aleve with minimal relief. Denies any fevers or chills. No other complaints or concerns at this time. MD complaint: knee injury Onset (ago): week(s) Place: street/outdoors Severity: moderate Relieving factors: nothing Exacerbating factors: nothing Other symptoms: none Related Data Home Medications ?Medication ?Instructions ?Recorded ?Confirmed clonazepam 0.5 mg tablet 0.5 mg PO BID PRN 03/30/20 02/23/23 ibuprofen 800 mg tablet 800 mg PO Q8H 03/30/20 02/23/23 nortriptyline 25 mg capsule 25 mg PO BEDTIME 04/20/20 02/23/23 multivitamin with minerals-folic tab PO 05/18/20 02/23/23 acid 200 mcg chewable tablet (Adult Multivitamin Gummies) ascorbic acid (vitamin C) 1,000 mg 1 g PO Q6H 06/19/20 02/23/23 tablet cholecalciferol (vitamin D3) 25 25 mcg PO DAILY 06/19/20 02/23/23 mcg (1,000 unit) capsule Previous Rx's ?Medication ?Instructions ?Recorded polyethylene glycol 3350 17 gram 17 g PO DAILY PRN constipation 30 04/20/20 oral powder packet (Miralax) days #30 ea blood-glucose meter (FreeStyle #1 ea 05/04/20 Lite Meter kit) lancets 28 gauge (FreeStyle #200 ea 05/04/20 Lancets) blood sugar diagnostic (FreeStyle #200 ea 07/22/22 Lite Strips) sumatriptan succinate 25 mg tablet See Rx Instructions PO .COMPLEX #8 08/13/22 tabs meloxicam 15 mg tablet 15 mg PO DAILY #14 tabs 09/14/22 triamcinolone acetonide 0.5 % 1 appl topical BID 10 days #30 12/21/22 topical ointment grams dulaglutide 1.5 mg/0.5 mL 1.5 mg (0.5 mL) subcut QWEEK 28 04/21/23 subcutaneous pen injector days #2 mL glipizide 10 mg tablet, extended 10 mg PO DAILY 90 days #90 tabs 04/21/23 release 24 hr nut.tx.gluc.intol,lac-free,soy 1 ea PO DAILY 30 days #7,110 mL 04/21/23 (Glucerna Shake oral liquid) levothyroxine 125 mcg tablet 250 mcg (2 x 125 mcg) PO DAILY 90 09/20/23 days #180 tabs metformin 500 mg tablet See Rx Instructions PO BID 90 days 09/20/23 #270 tabs acetaminophen 500 mg tablet 500 mg PO Q6H PRN pain #30 tabs 09/30/23 (Tylenol Extra Strength) ibuprofen 600 mg tablet 600 mg PO Q6H PRN pain #30 tabs 09/30/23 Allergies Allergy/AdvReac Type Severity Reaction Status Date / Time codeine [CODEINE] Allergy Unknown ITCHING Verified 09/30/23 14:16 morphine [MORPHINE] Allergy Unknown ITCHING Verified 09/30/23 14:16 venom-honey bee AdvReac Severe Anaphylaxis Verified 09/30/23 14:16 Review of Systems Review of Systems: Yes all other systems are reviewed and are negative Constitutional: Constitutional: Reports as per [facility] Past Medical History Medical History Non-toxic multinodular goiter Morbid obesity Hypothyroidism Diabetes Anemia Surgical History Hx of cholecystectomy Family History Family History Father No problems noted. Mother Hypothyroid Multiple sclerosis Sister No problems noted. Daughter No problems noted. Daughter No problems noted. Social History Social History (Reviewed 04/21/23 @ 09:49 by MOON Bailey Housing: Apartment Alcohol intake: never Patient Tobacco Use Status: Former Tobacco user Quit Date: 5 years ago e-Cigarette/Vaping Use: Never Used Second Hand Smoke Exposure: No Advance Directives: No Advance Directives Information Provided: No service: No Current occupational status: employed Current occupation: @ [employer] Current occupational exposures/hazards: No Cognitive needs: No Hearing needs: No Vision needs: No Physical Exam Vital Signs: Vital Signs: Last Vital Signs Temp 97.3 F 09/30/23 14:13 Pulse 95 09/30/23 14:13 Resp 18 09/30/23 14:13 BP 149/86 H 09/30/23 14:13 Pulse Ox 99 09/30/23 14:13 O2 Del Method Room Air 09/30/23 14:13 BMI result Body Mass Index 44.5 Const: General: cooperative, comfortable and no acute distress Orientation/consciousness: patient oriented x3 Limitations: no limitations HEENT: Head: Yes normal to inspection, Yes normocephalic and Yes atraumatic Ears: hearing grossly normal bilaterally General nose exam: Normal external nose present Face and sinus: Yes normal facial exam Mouth: Normal oral and palatal mucosa present, oropharynx normal and moist mucous membranes Throat: Yes posterior oropharynx normal Eyes: General: appearance normal, both eyes and all related structures Eyelids: Yes eyelids normal Conjunctivae: conjunctivae normal Sclerae: sclerae normal Pupils: Equal, round and reactive pupils present EOM: EOMs intact bilaterally Neck: Neck: Yes normal visual inspection, Yes full ROM and Yes no lymphadenopathy Lymphatic: no lymphadenopathy noted Chest: Chest palpation & inspection: normal inspection of the chest Resp: Effort & Inspection: normal respiratory effort and able to speak in complete sentences Auscultation: clear to auscultation bilaterally, no crackles, no rales, no rhonchi and no wheezes Cardio: Rate: regular rate Rhythm: regular rhythm Heart sounds: S1 normal heart sound present and S2 normal heart sound present GI: Inspection: Yes normal to inspection Skin: General skin exam: no rashes or lesions noted Trauma: no lacerations or abrasions Wounds: no wounds Neuro: General: patient oriented x3 and moves all extremities Cranial nerves: Yes Equal, round and reactive pupils present Extrem: Other: Tenderness palpation along the posterior aspect of the left knee. Pain with anterior drawer test. Strong radial pulse, no calf tenderness. No joint laxity with varus and valgus strain. No Obvious bony deformity or swelling General: Yes normal to inspection Right upper extremity: normal to inspection Left upper extremity: normal to inspection Right lower extremity: normal to inspection Left lower extremity: normal to inspection Medical Decision Making Medical Decision Making MDM Narrative: This is a 53-year-old female, with a history of chronic left knee pain, who presents to the emergency department with complaints of acute on chronic left knee pain x 2 weeks. Pain to left calf as well as tenderness palpation along the posterior left knee. X-rays obtained, no acute bony abnormality seen. Ultrasound revealing Dai's cyst. Discussed findings with patient. She already has a knee brace. Given referral to orthopedics. Given return precautions. She understands and agrees with plan. She does not want crutches at this time. Patient stable for discharge Differential Diagnosis Differential Diagnoses: The differential diagnosis associated with the presentation includes Dai's cyst, knee strain, contusion, fracture, DVT Admission/Observation Consideration of admission/observation: Escalation of care including admission/observation considered Radiology Impression Discussion of test interpretation with radiology: I have reviewed the radiologist's reading. Radiologist Impression: EXAMINATION: US VENOUS ULTRASOUND WITH DOPPLER LOWER EXTREMITY, LEFT CLINICAL INFORMATION: calf pain COMPARISON: DVT US 07/16/2020 TECHNIQUE: Ultrasound of the deep veins is performed from the hip to the calf with compression sonography and color and pulse Doppler assessment. Spectral analysis with color-flow imaging is performed. FINDINGS: There is normal venous compression and respiratory variation and augmented flow. The visualized common femoral vein, superficial femoral vein, profunda femoral vein, popliteal vein, and the trifurcation region shows no evidence of deep venous thrombosis. Dai's cyst measuring 4.7 x 1.1 x 0.9 cm. US/US venous duplex LE LT IMPRESSION: No DVT demonstrated in the left lower extremity. EXAMINATION: XR KNEE, LEFT CLINICAL INFORMATION: Pain COMPARISON: None available. TECHNIQUE: Four views of the left knee. FINDINGS: No effusion. Moderate joint compartment narrowing medial tibial femoral joint compartment. Generalized spurring. No radiopaque loose body or focal bony lesion. XR/XR knee LT 3V IMPRESSION: Osteoarthritis as above. No effusion. Dictated By: Joseph Schilling MD Discharge Plan Discharge Clinical Impression: Knee sprain Qualifiers: Encounter type: initial encounter Involved ligament of knee: other ligament Laterality: left Qualified Code(s): S83.8X2A - Sprain of other specified parts of left knee, initial encounter Dai's cyst Qualifiers: Laterality: left Qualified Code(s): M71.22 - Synovial cyst of popliteal space [Dai], left knee Patient Disposition: Home, Self-Care Instructions: Knee Sprain (ED), Bakers Cyst (ED), Leg Sprain (ED), R.I.C.E. Treatment (ED) Additional Instructions: You were seen in the ER with complaints of left knee pain. You have a dai's cyst which can cause pain. There was no evidence of a blood clot on your ultrasound. Your xray was normal. Take Ibuprofen and/or tylenol as directed as needed for pain. Rest, ice, use knee brace, and elevate your leg. Follow up with orthopedics, call on monday for an appointment. If any new or worsening symptoms occur, including but not limited to worsening pain, swelling, redness, decreased range of motion, chest pain or shortness of breath, please return for re-evaluation. Prescriptions: New ibuprofen 600 mg tablet 600 mg PO Q6H PRN (Reason: pain) Qty: 30 0RF acetaminophen [Tylenol Extra Strength] 500 mg tablet 500 mg PO Q6H PRN (Reason: pain) Qty: 30 0RF No Action (DME) FreeStyle Lite Strips Strip See Rx Instructions .MEDSUPPLY Qty: 200 4RF Rx Instructions: DX: E11.9, test blood sugar 2 times a day, 90 days triamcinolone acetonide 0.5 % ointment 1 appl topical BID 10 Days Qty: 30 0RF levothyroxine 125 mcg tablet 250 mcg PO DAILY 90 Days Qty: 180 0RF metformin 500 mg tablet See Rx Instructions PO BID 90 Days Qty: 270 0RF Rx Instructions: 1000 mg a.m. and 500 mg p.m. PO 2 times a day; nortriptyline 25 mg capsule 25 mg PO BEDTIME polyethylene glycol 3350 [Miralax] 17 gram powder in packet 17 g PO DAILY PRN (Reason: constipation) 30 Days Qty: 30 2RF Adult Multivitamin Gummies 200 mcg tablet,chewable PO cholecalciferol (vitamin D3) 25 mcg (1,000 unit) capsule 25 mcg PO DAILY ascorbic acid (vitamin C) 1,000 mg tablet 1 g PO Q6H clonazepam 0.5 mg tablet 0.5 mg PO BID PRN ibuprofen 800 mg tablet 800 mg PO Q8H (DME) blood-glucose meter [FreeStyle Lite Meter] Kit See Rx Instructions .MEDSUPPLY Qty: 1 0RF Rx Instructions: DX: E11.9, test blood sugar 2 times a day, duration 999 days (DME) lancets [FreeStyle Lancets] 28 gauge [facility] See Rx Instructions .MEDSUPPLY Qty: 200 4RF Rx Instructions: As directed meloxicam 15 mg tablet 15 mg PO DAILY Qty: 14 0RF sumatriptan succinate 25 mg tablet See Rx Instructions PO .COMPLEX Qty: 8 0RF Rx Instructions: take 1 tab at onset of headache; if no relief may repeat 1 tab after at least 2 hrs; max = 4 tabs/24 hr PO dulaglutide 1.5 mg/0.5 mL pen injector 1.5 mg subcut QWEEK 28 Days Qty: 2 3RF glipizide 10 mg tablet extended release 24hr 10 mg PO DAILY 90 Days Qty: 90 2RF Glucerna Shake Liquid 1 ea PO DAILY 30 Days Qty: 7110 3RF Referrals: [facility] [Provider Group] Print Language: Macedonian
[2023-09-30 19:53] VITALS: BP 147/81; PULSE 89; RESP 18; TEMP 36.2; O2SAT 98
== END 2023-09-30 19:53 | disposition home or self-care (01) ==
PROVIDERS: Emergency Provider Internal Medicine; PCP Family Medicine
DX: S83.8X2A Sprain of other specified parts of left knee, initial encounter (principal); X50.1XXA Overexertion from prolonged static or awkward postures, initial encounter; M71.22 Synovial cyst of popliteal space [Baker], left knee; M79.662 Pain in left lower leg; Y93.89 Activity, other specified; Y92.813 Airplane as the place of occurrence of the external cause; Y99.9 Unspecified external cause status
CPT/HCPCS: 73562; 93971; 99282; 99284

== ENCOUNTER 2023-10-20 10:52 | Emergency (ER) | payer OTHER, SELFPAY ==
[2023-10-20] VITALS (8 sets, daily range): BP systolic 108–163; BP diastolic 65–86; PULSE 106–125; RESP 14–26; TEMP 37.1–38.7; O2SAT 95–99; BMI 44.2
--- NOTE | 2023-10-20 | ECG_ITS ---
Test Reason : TACHY Blood Pressure : / mmHG Vent. Rate : 120 BPM Atrial Rate : 120 BPM P-R Int : 142 ms QRS Dur : 072 ms QT Int : 300 ms P-R-T Axes : 058 013 044 degrees QTc Int : 424 ms Sinus tachycardia Otherwise normal ECG No significant changes when compared with the previous EKG of 22 apr 2020 Referred By: Generic ED Physician Electronically Signed By:JUSTUS MANCERA
--- NOTE | ~2023-10-20 | CT_ITS ---
EXAMINATION: CT ABDOMEN AND PELVIS WITHOUT CONTRAST CLINICAL INFORMATION: Right flank pain. COMPARISON: Abdominal ultrasound 01/27/2020 TECHNIQUE: Multidetector volumetric imaging was performed from the superior aspect of the liver through the pubic symphysis. Sagittal and coronal reformatted images were obtained on the technologist's workstation. This CT examination was performed using dose optimization techniques as appropriate, variously including the following: *Automated exposure control *Adjustment of mA and/or kV according to patient size (this includes techniques or standardized protocols for targeted exams where dose is matched to indication/reason for exam; i.e. extremities or head) *Use of iterative reconstruction technique DLP: 1005 mGy-cm FINDINGS: LUNG BASES: The visualized lung bases are unremarkable. LIVER, GALLBLADDER, AND BILIARY TREE: The noncontrast liver is enlarged and decreased in attenuation. No biliary ductal dilatation is present. The gallbladder is surgically absent. PANCREAS: No ductal dilatation. SPLEEN: Enlarged. Measures 16.1 cm in AP dimension. ADRENAL GLANDS: No adrenal mass. KIDNEYS AND URETERS: Mild asymmetric right perinephric stranding. No renal or ureteral calculus is seen. The left kidney is unremarkable. BLADDER: Unremarkable. No bladder calculus. GASTROINTESTINAL TRACT: Small and large bowel loops are of normal caliber. No small bowel obstruction. Appendix is within normal limits. Scattered colonic diverticula. ABDOMINAL WALL: No significant hernia is appreciated. LYMPH NODES: No bulky lymphadenopathy. VASCULAR: Normal caliber abdominal aorta. PELVIC VISCERA: Right calcified fibroid. Intrauterine device is in place. OSSEOUS STRUCTURES: No destructive bone lesions. CT/CT abdomen pelvis wo IV con IMPRESSION: Mild asymmetric right perinephric stranding. No collecting system calculus is seen. No hydronephrosis. A recently passed calculus cannot be excluded. Hepatic steatosis and hepatomegaly. Splenomegaly.
--- NOTE | 2023-10-20 11:14 | ED.GENADULT ---
HPI - General Adult General Chief complaint: Urogenital-Female Stated complaint: UTI Fever Chills Time Seen by Provider: 10/20/23 11:39 Source: patient Mode of arrival: ambulatory Limitations: no limitations History of Present Illness ED Provider: daniela HPI narrative: Patient is a 53-year-old female currently being treated for a UTI with Bactrim presenting to the ED with complaint of body aches, fever, and feeling worse since starting Bactrim. She reports her initial symptoms were pressure while urinating and dysuria. Now has 5/10 right flank pain, nausea which she feels is due to taking her metformin without eating. Denies vomiting or diarrhea. States I feel like I have the flu. Tmax of 104 at home. complaint: fever, flank pain Onset (ago): day(s) Severity scale (1-10): 5 Quality: aching Pain Consistency: constant Associated symptoms: fever/chills and nausea/vomiting Treatments prior to arrival: other Related Data Home Medications ?Medication ?Instructions ?Recorded ?Confirmed clonazepam 0.5 mg tablet 0.5 mg PO BID PRN 03/30/20 02/23/23 ibuprofen 800 mg tablet 800 mg PO Q8H 03/30/20 02/23/23 nortriptyline 25 mg capsule 25 mg PO BEDTIME 04/20/20 02/23/23 multivitamin with minerals-folic tab PO 05/18/20 02/23/23 acid 200 mcg chewable tablet (Adult Multivitamin Gummies) ascorbic acid (vitamin C) 1,000 mg 1 g PO Q6H 06/19/20 02/23/23 tablet cholecalciferol (vitamin D3) 25 25 mcg PO DAILY 06/19/20 02/23/23 mcg (1,000 unit) capsule Previous Rx's ?Medication ?Instructions ?Recorded polyethylene glycol 3350 17 gram 17 g PO DAILY PRN constipation 30 04/20/20 oral powder packet (Miralax) days #30 ea blood-glucose meter (FreeStyle #1 ea 05/04/20 Lite Meter kit) lancets 28 gauge (FreeStyle #200 ea 05/04/20 Lancets) blood sugar diagnostic (FreeStyle #200 ea 07/22/22 Lite Strips) sumatriptan succinate 25 mg tablet See Rx Instructions PO .COMPLEX #8 08/13/22 tabs meloxicam 15 mg tablet 15 mg PO DAILY #14 tabs 09/14/22 triamcinolone acetonide 0.5 % 1 appl topical BID 10 days #30 12/21/22 topical ointment grams dulaglutide 1.5 mg/0.5 mL 1.5 mg (0.5 mL) subcut QWEEK 28 04/21/23 subcutaneous pen injector days #2 mL glipizide 10 mg tablet, extended 10 mg PO DAILY 90 days #90 tabs 04/21/23 release 24 hr nut.tx.gluc.intol,lac-free,soy 1 ea PO DAILY 30 days #7,110 mL 04/21/23 (Glucerna Shake oral liquid) levothyroxine 125 mcg tablet 250 mcg (2 x 125 mcg) PO DAILY 90 09/20/23 days #180 tabs metformin 500 mg tablet See Rx Instructions PO BID 90 days 09/20/23 #270 tabs acetaminophen 500 mg tablet 500 mg PO Q6H PRN pain #30 tabs 09/30/23 (Tylenol Extra Strength) ibuprofen 600 mg tablet 600 mg PO Q6H PRN pain #30 tabs 09/30/23 cefpodoxime 200 mg tablet 200 mg PO BID #20 tabs 10/20/23 Allergies Allergy/AdvReac Type Severity Reaction Status Date / Time codeine [CODEINE] Allergy Unknown ITCHING Verified 10/20/23 11:19 morphine [MORPHINE] Allergy Unknown ITCHING Verified 10/20/23 11:19 venom-honey bee AdvReac Severe Anaphylaxis Verified 10/20/23 11:19 Review of Systems Review of Systems: As per HPI. Yes all other systems are reviewed and are negative Constitutional: Constitutional: Reports as per HPI [facility] Past Medical History Medical History Non-toxic multinodular goiter Morbid obesity Hypothyroidism Diabetes Anemia Surgical History Hx of cholecystectomy Family History Family History Father No problems noted. Mother Hypothyroid Multiple sclerosis Sister No problems noted. Daughter No problems noted. Daughter No problems noted. Social History Social History (Reviewed 04/21/23 @ 09:49 by MOON Bailey Housing: Apartment Alcohol intake: never Patient Tobacco Use Status: Former Tobacco user Smoked in Last 30 Days: No e-Cigarette/Vaping Use: Never Used Second Hand Smoke Exposure: No Use of substances other than those prescribed or required for medical reasons: No Advance Directives: No Advance Directives Information Provided: No Do you have a plan to hurt others: No Plan Patient : No service: No Current occupational status: employed Current occupation: @ [employer] Current occupational exposures/hazards: No Cognitive needs: No Hearing needs: No Vision needs: No Physical Exam ED Vital Signs: Vital Signs - 24 hr 10/20/23 11:13 10/20/23 11:26 10/20/23 12:08 Temperature 101.7 F H 101.3 F H 99.8 F Pulse Rate 122 H 125 H 117 H Respiratory Rate 22 H 26 H 23 H Blood Pressure 163/84 H 157/74 H 119/65 Pulse Oximetry 96 99 96 Oxygen Delivery Method Room Air Room Air Room Air 10/20/23 12:47 10/20/23 12:50 10/20/23 13:18 Temperature 100.1 F 100.1 F 99.2 F Pulse Rate 112 H 114 H 112 H Respiratory Rate 20 24 H 15 Blood Pressure 110/67 110/67 149/86 H Pulse Oximetry 98 96 96 Oxygen Delivery Method Room Air Room Air Room Air 10/20/23 14:09 Temperature 98.7 F Pulse Rate 106 H Respiratory Rate 19 Blood Pressure 108/68 Pulse Oximetry 95 Oxygen Delivery Method Room Air BMI result Body Mass Index 44.2 Vital signs have been reviewed and appear to be correct. Blood pressure elevated. Heart rate tachycardic. Respiratory rate elevated. Temperature febrile. Oxygen saturation normal. Const General: cooperative and no acute distress Nutritional Appearance: obese morbidly obese Orientation/consciousness: oriented to person, oriented to place, oriented to time and patient oriented x3 Limitations: no limitations HENMT Head: Yes normocephalic and Yes atraumatic Ears: external ears normal General nose exam: Normal external nose present Face and sinus: Yes face symmetric Mouth: oropharynx normal and moist mucous membranes Throat: Yes uvula midline Eyes Pupils: Equal, round and reactive pupils present Neck Neck: Yes normal visual inspection and Yes supple Resp Effort & Inspection: normal respiratory effort and able to speak in complete sentences Auscultation: clear to auscultation bilaterally Cardio Rate: regular rate Rhythm: regular rhythm Heart sounds: S1 normal heart sound present and S2 normal heart sound present GI Palpation (GI): Soft to palpation and nontender Auscultation: normoactive bowel sounds General: Yes CVA tenderness on the right Back/Spine/Pelvis Back: CVA tenderness Skin General skin exam: elasticity normal and turgor normal Neuro General: oriented to person, oriented to place, oriented to time, patient oriented x3, moves all extremities, no focal motor deficits and CN's II-XI intact bilaterally Cranial nerves: Yes Equal, round and reactive pupils present Cognition (Neuro): normal cognition Extrem General: Yes full ROM, Yes no pedal edema and Yes no calf tenderness Psych Mental Status: mental status grossly normal Affect: normal affect Thought process: Normal thought process present Course Course Course Narrative: This is an RME performed by Yogesh Sharpe CNP: Additional HPI, ROS, PE not included below will be deferred to primary provider. Patient is a 53-year-old female past medical history of type 2 diabetes and hypothyroidism presenting to emergency department for evaluation. She was treated by her tier lift operator at [facility] at [facility] for a urinary tract infection, 2 days ago started on Bactrim, she is taken 5 doses thus far. She was experiencing hematuria, difficulty urinating, right flank pain. T-max 104 degrees last night. She contacted her beveler who told her to come to the emergency department today for IV antibiotics. She provides her outpatient labs from [facility]; urine culture with E coli cfu 100,000 resistant to ampicillin and Bactrim. Physical exam: Tachycardic, febrile, CVA tenderness Plan: Meeting SIRS criteria, labs including lactic acid and blood cultures ordered, spoke with clinic charge nurse, patient to be brought back to room 3 Medications Administered Discontinued Medications Generic Name Dose Route Start Last Admin Trade Name Traq PRN Reason Stop Dose Admin Acetaminophen 975 mg 10/20/23 11:16 10/20/23 11:46 Acetaminophen 325 Mg Tablet PO 10/20/23 11:17 975 mg ONCE ONE Administration Ceftriaxone Sodium 1 gm/ 50 mls @ 100 mls/hr 10/20/23 11:21 10/20/23 12:16 Sodium Chloride IV 10/20/23 11:50 Infused ONCE ONE Infusion Sodium Chloride 1,000 mls @ 999 mls/hr 10/20/23 11:23 10/20/23 12:47 Ns IV 10/20/23 12:23 Infused .Q1H1M ONE Infusion Sodium Chloride 1,000 mls @ 999 mls/hr 10/20/23 11:23 10/20/23 12:47 Ns IV 10/20/23 12:23 Infused .Q1H1M ONE Infusion Ketorolac Tromethamine 15 mg 10/20/23 12:03 10/20/23 12:34 Ketorolac Tromethamine 15 Mg/Ml Vial IVPUSH 10/20/23 12:04 15 mg ONCE ONE Administration Medical Decision Making Medical Decision Making [facility] Narrative: Patient is a 53-year-old female currently being treated for a UTI with Bactrim presenting to the ED with complaint of body aches, fever, and feeling worse since starting Bactrim. Patient meeting sepsis criteria, is obese at 135.7k, ideal body weight is 66kg. 2L IV fluids ordered by attending MD in nursing gap requirement point clinical background Baird 90 she amlodipine aspirin blood that she said she was started on was which meets 30mL/kg criteria based on ideal body weight. IV ceftriaxone also ordered by Dr. Cronin, attending MD prior to my assumption of care. On exam patient is awake, A+Ox3, tachycardic, febrile, normal neurological exam without focal deficits, physical exam findings as above. Given reported symptoms and physical exam findings, initial differential includes pyelonephritis, infected renal calculi, viral illness, sepsis versus fever response. Labs notable for mild leukocytosis with left shift, normal lactic, hyperglycemia without gap, mild hyponatremia. CT notable for Mild right perinephric stranding on CT, no evidence of calculi.. My interpretation is in agreement with the radiologist's interpretation. Patient tolerating PO fluids in the ED. Feel she is stable for discharge home on cefpodoxime. Return precautions discussed. Instructed her to follow up with PCP. Patient verbalized understanding of and agreement with plan. Differential Diagnosis Differential Diagnoses: The differential diagnosis associated with the presentation includes As per [facility] Admission/Observation Consideration of admission/observation: Escalation of care including admission/observation considered Patient would have been admitted to the hospital had their work up had any findings where hospital admission was appropriate and their clinical presentation warranted hospital admission. Lab Data [facility] Lab Attestation statement: I reviewed the patient's lab results. As per [facility] 10/20/23 11:34 10/20/23 11:34 Labs: Lab Results 10/20/23 10/20/23 10/20/23 Range/Units 11:34 11:46 13:03 WBC 11.3 H (4.8-10.8) X10*3/uL RBC 5.26 (4.20-5.50) X10*6/uL Hgb 12.8 (12.0-16.0) g/dl Hct 40.1 (37.0-47.0) % MCV 76.2 L (80.0-98.0) fL MCH 24.3 L (27.0-33.0) pg MCHC 31.9 (31.0-35.0) g/dl RDW 17.4 H (11.0-16.0) % Plt Count 296 (160-400) X10*3/uL MPV 10.0 (9.4-12.3) fL Immature Gran % (Auto) 0.4 (0.0-0.4) % Neut % (Auto) 75.9 H (45-73) % Lymph % (Auto) 13.4 L (20-40) % Lynn % (Auto) 9.7 (2-11) % Eos % (Auto) 0.2 (0-4) % Baso % (Auto) 0.4 (0-2) % Lymph # (Auto) 1.5 (1.2-4.9) X10*3/uL Lynn # (Auto) 1.1 (0.1-1.2) X10*3/uL Eos # (Auto) 0.0 (0.0-0.4) X10*3/uL Baso # (Auto) 0.0 (0.0-0.2) X10*3/uL Abs Immat Gran (auto) 0.05 H (0.00-0.03) X10*3/uL Absolute Neuts (auto) 8.6 H (2.0-8.3) x10*3/uL Absolute Nucleated RBC 0.000 (0.0-0.012) X10*3/uL Nucleated RBC % (auto) 0.0 (0.0-0.2) /100WBC Sodium 132 L (135-145) mmol/L Potassium 4.4 (3.3-5.1) mmol/L Chloride 98 (96-108) mmol/L Carbon Dioxide 26 (22-29) mmol/L Anion Gap 12 (12-20) BUN 8 L (9-16) mg/dL Creatinine 0.84 (0.5-1.4) mg/dL Estim Creat Clear Calc 112.3 Estimated GFR > 60 Random Glucose 262 H (60-115) mg/dL Lactic Acid 1.7 (0.5-2.0) mmol/L Calcium 9.9 (8.4-10.2) mg/dL Total Bilirubin 0.8 (0.0-1.0) mg/dL AST 19 (5-31) U/L ALT 30 (0-31) U/L Alkaline Phosphatase 85 (39-117) U/L Total Protein 7.8 (6.5-8.0) g/dL Albumin 4.1 (3.5-5.0) g/dL Urine Color Yellow Urine Appearance Cloudy Urine pH 6.5 (5.0-9.0) Ur Specific [place] 1.020 (1.005-1.025) Urine Protein 30 (1+) H (Neg-Trace) mg/dL Urine Glucose (UA) 250 H (Negative) mg/dL Urine Ketones Negative (Negative) mg/dL Urine Blood Large (3+) H (Negative) Urine Nitrite Negative (Negative) Ur Leukocyte Esterase Moderate (2+) H (Negative) Urine RBC >20 H (0-2) /HPF Urine WBC 21-50 H (0-5) /HPF Ur Squamous Epith Cells 6-10 (0-2) /HPF Urine Bacteria Trace (None Seen) Hyaline Casts 0-2 (0-2) /LPF Influenza Type A (PCR) NEGATIVE (Negative) Influenza Type B (PCR) NEGATIVE (Negative) RSV RNA Qual (PCR) NEGATIVE (Negative) SARS-CoV-2 RNA (RT-PCR) NEGATIVE (Negative) Independent Interpretation I performed an independent interpretation of an: CT Scan Interpretation: Mild right perinephric stranding on CT, no evidence of calculi. Radiology Impression Discussion of test interpretation with radiology: I have reviewed the radiologist's reading. Radiologist Impression: CT/CT abdomen pelvis wo IV con IMPRESSION: Mild asymmetric right perinephric stranding. No collecting system calculus is seen. No hydronephrosis. A recently passed calculus cannot be excluded. Hepatic steatosis and hepatomegaly. Splenomegaly. External Record Review External record reviewed: Inpatient record, Office record and Outpatient record Prescription Management I considered prescription management with: Antibiotic Chronic Conditions Patient?s care impacted by: Diabetes Critical Care Time Critical Care Time Critical Care Time: Yes Total Critical Care Time: 49 Attestation: I have personally provided critical care time exclusive of time spent on separately billable procedures. Time includes review of lab data, radiology results, discussion with consultants, and monitoring for potential decompensation. Intervention performed as documented. Discharge Plan Discharge Clinical Impression: Pyelonephritis Patient Disposition: Home, Self-Care Instructions: Kidney Infection (ED) Additional Instructions: You have been evaluated in the emergency department today for fever. Your evaluation suggests that your symptoms are due to a kidney infection. Please stop taking the Bactrim (sulfamethoxazole/trimethoprim) and being taking your newly prescribed antibiotics for the full course of medication as directed. Please follow-up with your primary care provider within 2 days. Return to the emergency department if you experience fevers 100.4? F or greater, worsening or uncontrolled pain, vomiting, flank pain, or for any other concerning symptoms. Prescriptions: New cefpodoxime 200 mg tablet 200 mg PO BID Qty: 20 0RF Rx Instructions: must administer with a meal/food No Action (DME) FreeStyle Lite Strips Strip See Rx Instructions .MEDSUPPLY Qty: 200 4RF Rx Instructions: DX: E11.9, test blood sugar 2 times a day, 90 days triamcinolone acetonide 0.5 % ointment 1 appl topical BID 10 Days Qty: 30 0RF levothyroxine 125 mcg tablet 250 mcg PO DAILY 90 Days Qty: 180 0RF metformin 500 mg tablet See Rx Instructions PO BID 90 Days Qty: 270 0RF Rx Instructions: 1000 mg a.m. and 500 mg p.m. PO 2 times a day; ibuprofen 600 mg tablet 600 mg PO Q6H PRN (Reason: pain) Qty: 30 0RF acetaminophen [Tylenol Extra Strength] 500 mg tablet 500 mg PO Q6H PRN (Reason: pain) Qty: 30 0RF nortriptyline 25 mg capsule 25 mg PO BEDTIME polyethylene glycol 3350 [Miralax] 17 gram powder in packet 17 g PO DAILY PRN (Reason: constipation) 30 Days Qty: 30 2RF Adult Multivitamin Gummies 200 mcg tablet,chewable PO cholecalciferol (vitamin D3) 25 mcg (1,000 unit) capsule 25 mcg PO DAILY ascorbic acid (vitamin C) 1,000 mg tablet 1 g PO Q6H clonazepam 0.5 mg tablet 0.5 mg PO BID PRN ibuprofen 800 mg tablet 800 mg PO Q8H (DME) blood-glucose meter [FreeStyle Lite Meter] Kit See Rx Instructions .MEDSUPPLY Qty: 1 0RF Rx Instructions: DX: E11.9, test blood sugar 2 times a day, duration 999 days (DME) lancets [FreeStyle Lancets] 28 gauge misc See Rx Instructions .MEDSUPPLY Qty: 200 4RF Rx Instructions: As directed meloxicam 15 mg tablet 15 mg PO DAILY Qty: 14 0RF sumatriptan succinate 25 mg tablet See Rx Instructions PO .COMPLEX Qty: 8 0RF Rx Instructions: take 1 tab at onset of headache; if no relief may repeat 1 tab after at least 2 hrs; max = 4 tabs/24 hr PO dulaglutide 1.5 mg/0.5 mL pen injector 1.5 mg subcut QWEEK 28 Days Qty: 2 3RF glipizide 10 mg tablet extended release 24hr 10 mg PO DAILY 90 Days Qty: 90 2RF Glucerna Shake Liquid 1 ea PO DAILY 30 Days Qty: 7110 3RF Stand Alone Forms: Work/School Release Print Language: [place]
[2023-10-20 11:40] LABS: MANUAL DIFF FLAG NO
[2023-10-20 11:41] LABS: Basophils Percent Auto 0.4 % (0-2); Eosinophils Percent Auto 0.2 % (0-4); Hematocrit 40.1 % (37.0-47.0); Hemoglobin 12.8 g/dl (12.0-16.0); Imm Gran Abs Auto 0.05 X10*3/uL (0.00-0.03); Imm Gran Pct Auto 0.4 % (0.0-0.4); Lymphocytes Absolute Auto 1.5 X10*3/uL (1.2-4.9); Lymphocytes Percent Auto 13.4 % (20-40); Mean Corpuscular HGB Conc 31.9 g/dl (31.0-35.0); Mean Corpuscular Hemoglobin 24.3 pg (27.0-33.0); Mean Corpuscular Volume 76.2 fL (80.0-98.0); Monocytes Absolute Auto 1.1 X10*3/uL (0.1-1.2); Monocytes Percent Auto 9.7 % (2-11); Neutrophils Absolute Auto 8.6 x10*3/uL (2.0-8.3); Neutrophils Percent Auto 75.9 % (45-73); Platelet Count 296 X10*3/uL (160-400); Red Blood Count 5.26 X10*6/uL (4.20-5.50); Red Cell Distribution Width 17.4 % (11.0-16.0); White Blood Count 11.3 X10*3/uL (4.8-10.8)
[2023-10-20] MEDS: cefTRIAXone sodium 1 GM in 0.9 % Sodium Chloride 50 ML IV (11:46)
[2023-10-20] MEDS: Acetaminophen 325 MG TABLET 975 MG PO (11:46)
[2023-10-20] MEDS: 0.9 % Sodium Chloride 1,000 ML 999 ML IV ×2 (11:46)
[2023-10-20 11:52] LABS: Appearance Urine Cloudy; Color Urine Yellow; Glucose Urine UA 250 mg/dL (Negative); Leukocyte Esterase Urine Moderate (2+) (Negative); Nitrite Urine Negative (Negative); PH 6.5 (5.0-9.0); UMIC TRIGGER UACC YES; Urine Blood Large (3+) (Negative); Urine Ketones Negative (Negative); Urine Protein 30 (1+) mg/dL (Neg-Trace)
[2023-10-20 11:52] LABS: Lactic Acid 1.7 mmol/L (0.5-2.0)
[2023-10-20 11:57] LABS: Alanine Aminotransferase 30 U/L (0-31); Albumin Level 4.1 g/dL (3.5-5.0); Alkaline Phosphatase 85 U/L (39-117); Anion Gap 12 (12-20); Aspartate Amino Transferase 19 U/L (5-31); Bilirubin Total 0.8 mg/dL (0.0-1.0); Blood Urea Nitrogen 8 mg/dL (9-16); Calcium 9.9 mg/dL (8.4-10.2); Carbon Dioxide 26 mmol/L (22-29); Chloride 98 mmol/L (96-108); Creatinine Clr Calc Pharmacy 112.3; Estimated Glomerular Filt Rate > 60; Glucose Random 262 mg/dL (60-115); Potassium 4.4 mmol/L (3.3-5.1); Sodium 132 mmol/L (135-145); Total Protein 7.8 g/dL (6.5-8.0)
--- NOTE | 2023-10-20 12:00 | PC.NURSE ---
pt presents from triage as sepsis alert. upon assessment, pt a&ox4. tachycardic - HR in 120s. pt denies chest pain/palpitations. tachypneic. although pt denies feeling sob, sob/wob noted. febrile. pt extremely diaphoretic. two, 20gIVs placed in the ACs bilaterally. wrapped in gauze to hold access' secure. cultures/labs/urine obtained/sent to lab. IVF/medication administered per provider order. ekg performed by tech. pt presents to the ED after recently being treated for UTI. pt verbalizes being compliant w/ abx prescribed by PCP. pt states she was advised to come in as PCP expects kidney infection. pt c/o difficulty urinating as she states that she feels like she needs to push every time she urinates. pt denies all other urinary sx aside from itchiness in the vaginal area. pt also denies any discharge/foul smelling odors. respirations even/labored. plan of care ongoing. call mahoney placed within reach.
[2023-10-20 12:07] LABS: Bacteria Urine Trace (None Seen); Hyaline Casts Urine 0-2 /LPF (0-2); RBC Urine >20 /HPF (0-2); UACC Culture Trigger YES; WBC Urine 21-50 /HPF (0-5)
[2023-10-20] MEDS: Ketorolac Tromethamine 15 MG/ML VIAL IVPUSH (12:34)
--- NOTE | 2023-10-20 12:37 | PC.NURSE ---
bladder scan obtained displaying 6ml. pt medicated per provider order. effectiveness pending.
--- NOTE | 2023-10-20 12:48 | MHC.EDTECH ---
6mL of urine detected with bladder scan, pt voided aprox 1 hr prior, does not have urge to void.
--- NOTE | 2023-10-20 13:00 | PC.NURSE ---
pt to CT at this time.
[2023-10-20 13:52] LABS: Influenza A PCR NEGATIVE (Negative); Influenza B PCR NEGATIVE (Negative); Resp Syncy Virus RNA Qual PCR NEGATIVE (Negative); SARS COV2 PCR INHOUSE NEGATIVE (Negative)
--- NOTE | 2023-10-20 14:38 | PC.NURSE ---
pt verbalizing pain decreased post medication administration. pt remains diaphoretic/slightly tachypneic. pt no longer febrile. pt waiting for CT at this time. resting comfortably in no apparent distress. plan of care ongoing. call mahoney placed within reach.
== END 2023-10-20 15:35 | disposition home or self-care (01) ==
PROVIDERS: Nurse Practitioner Family; Registered Nurse Emergency; Emergency Provider Emergency Medicine; PCP Family Medicine
DX: N12 Tubulo-interstitial nephritis, not specified as acute or chronic (principal); R00.0 Tachycardia, unspecified; R10.2 Pelvic and perineal pain; Z03.818 Encounter for observation for suspected exposure to other biological agents ruled out; Z79.899 Other long term (current) drug therapy
CPT/HCPCS: 0241U; 36415; 74176; 80053; 81001; 83605; 85025; 87040; 87086; 93005; 99285; J0696; J1885

== ENCOUNTER → 2023-10-20 11:26 | Outpatient (BNV) | payer OTHER, SELFPAY | PROVIDERS: Emergency Provider Emergency Medicine; PCP Family Medicine; Visit Provider Internal Medicine | DX: R00.0 Tachycardia, unspecified (principal) | CPT/HCPCS: 93010 ==

== ENCOUNTER 2023-12-08 15:56 | Outpatient (AMB) | payer OTHER, SELFPAY ==
--- NOTE | 2023-12-08 15:58 | A.OFFPC_ITS ---
Vital Signs 12/08/23 16:01 12/08/23 16:44 Height 5 ft 9 in Weight 301 lb 4 oz BMI 44.5 BP 142/64 H 140/70 H Blood Pressure Location Lt brachial Rt brachial Position Sitting Respiration 16 Pulse 108 H Pulse Source Pulse Oximeter Pulse Oximetry (%) 97 Oxygen Delivery Method Room Air Intake Visit Reasons: F/u medications and kidney infection Intake Note: Patient is here to follow up on medication review and kidney infection. Mold Dumper Required: No Ict Analyst: Not Required per policy Accompanied by: Self / Same As Patient Allergies codeine [CODEINE] Allergy (Unknown, Verified 12/08/23 16:19) ITCHING morphine [MORPHINE] Allergy (Unknown, Verified 12/08/23 16:19) ITCHING venom-honey bee Adverse Reaction (Severe, Verified 12/08/23 16:19) Anaphylaxis Medication List - Last Reconciled 12/08/23 by Rustam Kaur CNP acetaminophen (Tylenol Extra Strength) 500 mg PO Q6H PRN ascorbic acid (vitamin C) 1 g PO Q6H blood sugar diagnostic (FreeStyle Lite Strips) DX: E11.9, test blood sugar 2 times a day, 90 days blood-glucose meter (FreeStyle Lite Meter kit) DX: E11.9, test blood sugar 2 times a day, duration 999 days cholecalciferol (vitamin D3) 25 mcg PO DAILY clonazepam 0.5 mg PO BID PRN dulaglutide 1.5 mg (0.5 mL) subcut QWEEK 28 days glipizide ER 10 mg PO DAILY 90 days ibuprofen 800 mg PO Q8H lancets (FreeStyle Lancets) As directed levothyroxine 250 mcg (2 x 125 mcg) PO DAILY 90 days metformin 1000 mg a.m. and 500 mg p.m. PO 2 times a day; 90 days multivit with min-folic acid 200 mcg (Adult Multivitamin Gummies) tabs PO nortriptyline 25 mg PO BEDTIME sumatriptan succinate take 1 tab at onset of headache; if no relief may repeat 1 tab after at least 2 hrs; max = 4 tabs/24 hr PO Tobacco use date assessed: 12/08/23 Dental Screening Dental Screen Date: 12/08/23 Did you have a dental visit in the last 12 months?: Yes Did you have a dental problem in the last 6 months where you did not have access to dental care?: No Was dental information given to patient?: Patient has dentist HPI HPI Comments History of Present Illness Details 53-year-old female presents for a hospit al discharge follow-up visit. She was treated for pyelonephritis at [facility] on 10/20/2023. She was discharged home on cefpodoxime which she notes she took as prescribed. She notes that his symptoms completely resolved. She states that she has not follow-up with her PCP for diabetes and hypothyroidism. She has been taking metformin 1000 mg daily instead of 1000 mg in the morning and 500 mg at night. She experienced GI symptoms with the prescribed dose and no symptoms with the dose she has been taking. Her PCP is aware. She has been taking glipizide 10 mg daily. She requests refills for metformin and levothyroxine. She notes that she has been making healthy dietary choices but has not been exercising routinely She denies acute symptoms at this time [facility] Medical History Non-toxic multinodular goiter Morbid obesity Hypothyroidism Diabetes Anemia Surgical History Hx of cholecystectomy Family History (Updated 12/08/23 @ 16:09 by LISSET Payne) Father No problems noted. Mother Hypothyroid Multiple sclerosis Sister No problems noted. Daughter No problems noted. Daughter No problems noted. 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 1. Little interest or pleasure in doing things: not at all 2. Feeling down, depressed, or hopeless: not at all 3. Trouble falling or staying asleep, or sleeping too much: not at all 4. Feeling tired or having little energy: not at all 5. Poor appetite or overeating: not at all 6. Feeling bad about yourself - or that you are a failure or have let yourself or your family down: not at all 7. Trouble concentrating on things, such as reading the newspaper or watching television: not at all 8. Moving or speaking so slowly that other people could have noticed. Or the opposite - being so fidgety or restless that you have been moving around a lot more than usual: not at all 9. Thoughts that you would be better off or of hurting yourself in some way: not at all Total score: 0 Depression Screening Interpretation: Negative Depression Screening Done: Yes Source: Developed by Drs. Raghu Thompson, Naheed Calles, Liban Loza and colleagues, with an educational brandon from [employer]. Thrive Questionnaire Date Thrive assessed: 12/08/23 I am a: Patient What is your living situation today?: I have a steady place to live Within the past 12 months, did the food you bought not last and you didn't have the money to get more?: Never true Within the past 12 months, did you worry whether your food would run out before you got money to buy more?: Never true Do you have trouble paying for medicines?: No Do you have trouble getting transportation to medical appointments?: No Do you have trouble paying your heating and electricity bill?: No Do you have trouble taking care of your child, family member or friend?: No Do you have trouble with day-to-day activities such as bathing, preparing meals, shopping, managing finances, etc.?: No Are you currently unemployed and looking for a job?: No Are you interested in more education?: No Currently or been in a relationship where the following occur: No concerns reported THRIVE Score: 0 AUDIT C Alcohol Use Questionnaire (AUDIT-C) 1. How often do you have a drink containing alcohol?: Never Total Score: 0 DANIEL-7 AMB Questionnaire DANIEL-7 Date DANIEL - 7 assessed: 12/08/23 Feeling nervous, anxious, or on edge: 0 = Not at all Not being able to stop or control worryin = Not at all Worrying too much about different things: 0 = Not at all Trouble relaxin = Not at all Being so restless that it is hard to sit still: 0 = Not at all Becoming easily annoyed or irritable: 0 = Not at all Feeling afraid as if something awful might happen: 0 = Not at all Total DANIEL-7 score (0-4 normal; 5-9 mild; 10-14 moderate; 15-21 severe): 0 Source: Developed by Drs. Raghu Thompson, Naheed Calles, Liban Loza and colleagues, with an educational brandon from [employer]. Review of Systems Const Details: Const Denies chills, Denies fatigue, Denies fever(s), Denies headache(s) and Denies weakness ENT Denies dizziness and Denies headache(s) Card Denies chest pain, Denies lightheadedness, Denies dyspnea and Denies other (Palpitations) Resp Denies cough, Denies dyspnea, Denies wheezing and Denies other ( shortness of breath) GI Denies abdominal pain, Denies melena, Denies hematochezia, Denies change in bowel habits, Denies dyspepsia and Denies nausea Denies hematuria and Denies dysuria Musc Denies abnormal gait, Denies myalgias, Denies arthralgias, Denies numbness and Denies tingling Skin/Breast Denies rash, Denies unusual bruising and Denies wounds Neuro Denies abnormal gait, Denies dizziness, Denies headache(s), Denies memory loss, Denies numbness, Denies Sensory deficit (Neuro), Denies tingling and Denies weakness Psych Denies anxiety, Denies depression, Denies memory loss Endo Denies cold intolerance, Denies fatigue, Denies heat intolerance, Denies polydipsia and Denies polyuria Aller/Immun Denies wheezing Physical exam (Primary Care) Vital Signs: Last Vital Signs Pulse 108 H 12/08/23 16:01 Resp 16 12/08/23 16:01 BP 140/70 H 12/08/23 16:44 Pulse Ox 97 12/08/23 16:01 Oxygen Delivery Method Room Air 12/08/23 16:01 BMI result Body Mass Index 44.5 Tobacco/Smoking Status: Tobacco use Status Tobacco use date assessed 12/08/23 12/08/23 16:04 Patient Tobacco Use Status Former Tobacco user 12/08/23 16:04 e-Cigarette/Vaping Use Never Used 12/08/23 16:04 PHQ-9: PHQ-9 Score PHQ-9: Total score 0 12/08/23 16:18 Depression Screening Interpretation: Negative Thrive Assessment: Date of Thrive Assessment Date Thrive assessed 12/08/23 12/08/23 16:04 Currently or been in a relationship where the following occur: No concerns reported Const Other: General: no acute distress and well developed Nutritional Appearance: well nourished Orientation/consciousness: patient oriented x3 HENMT Head: Yes normocephalic and Yes atraumatic Eyes General: appearance normal, both eyes and all related structures Pupils: Equal, round and reactive pupils present EOM: EOMs intact bilaterally Resp Effort & Inspection: normal respiratory effort Auscultation: clear to auscultation bilaterally Cardio Rate: regular rate Rhythm: regular rhythm Heart sounds: S1 normal heart sound present, S2 normal heart sound present, no gallops, no murmurs and no rubs GI Palpation (GI): No Abdominal aortic bruit present, Soft to palpation, nontender, No hepatosplenomegaly present and No Rebound tenderness present Auscultation: normal bowel sounds General: Yes no CVA tenderness Back/Spine/Pelvis Back: no CVA tenderness Cervical Spine: cervical ROM normal and No Cervical spine tenderness Thoracic/Lumbar Spine: thoraco-lumbar ROM normal, No pain with thoraco-lumbar ROM, No thoracic spinal tenderness and No lumbar spinal tenderness Extrem General: Yes normal to inspection, No edema and No calf tenderness Skin General: warm and dry. Normal skin color. Normal skin turgorl Neuro General: patient oriented x3, gait normal and no focal neuro deficit Cranial nerves: Yes Equal, round and reactive pupils present Cognition (Neuro): normal cognition Gait exam (Neuro): Normal gait present Sensory Exam: No Sensory deficit (Neuro) Psych Appearance: grossly normal Affect: normal affect Attitude: cooperative Thought process: Normal thought process present Results AMB Hemoglobin A1c AMB Hemoglobin A1c 8.9 % Last Edit by Sophia Perla on 12/08/23 16:47 Assessment and Plan Assessment & Plan (1) Hospital discharge follow-up: Code(s): Z09 - Encounter for follow-up examination after completed treatment for conditions other than malignant neoplasm Plan: Treated for pyelonephritis in October. Her symptoms completely resolved (2) Diabetes type 2, uncontrolled: Code(s): E11.65 - Type 2 diabetes mellitus with hyperglycemia Plan: A1c today is 8.9%, above goal of less than 7.0%. 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 Advised to get nonfasting lab as soon as possible Follow-up with PCP (4) Elevated blood pressure reading in office without diagnosis of hypertension: Code(s): R03.0 - Elevated blood-pressure reading, without diagnosis of hypertension Plan: Resting blood pressure is 140/70, above goal of less than 130/80 She notes that she has been drinking 3 cups of espresso coffee daily; she cuts down from 6 cups daily about 2 months ago She denies heavy salt consumption Encouraged to cut down or avoid caffeine consumption Low-salt diet encouraged Follow-up with PCP in 1 month or sooner with symptoms or concerns Verbalized understanding and agreed with the treatment plan Orders: Orders TSH reflex Free T4 Today E03.8 - Other specified hypothyroidism, E06.3 - Autoimmune thyroiditis AMB Hemoglobin A1c Today E11.8 - Type 2 diabetes mellitus with unspecified complications Medications: Refilled blood sugar diagnostic (FreeStyle Lite Strips) DX: E11.9, test blood sugar 2 times a day, 90 days 200 ea 4RF E11.9 - Type 2 diabetes mellitus without complications levothyroxine 250 mcg (2 x 125 mcg) PO DAILY 90 days 180 tabs 0RF metformin 1000 mg a.m. and 500 mg p.m. 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
[2023-12-08 16:01] VITALS: BP 142/64; PULSE 108; RESP 16; O2SAT 97; BMI 44.5
[2023-12-08 16:44] VITALS: BP 140/70
== END 2023-12-08 16:50 | disposition home or self-care (01) ==
PROVIDERS: PCP Family Medicine; Visit Provider Nurse Practitioner Family
DX: Z09 Encounter for follow-up examination after completed treatment for conditions other than malignant neoplasm (principal); E11.65 Type 2 diabetes mellitus with hyperglycemia; E03.8 Other specified hypothyroidism; E06.3 Autoimmune thyroiditis; R03.0 Elevated blood-pressure reading, without diagnosis of hypertension; E11.8 Type 2 diabetes mellitus with unspecified complications
CPT/HCPCS: 83036; 99214

== ENCOUNTER 2024-03-07 14:49 | Outpatient (AMB) | payer OTHER, SELFPAY ==
--- NOTE | 2024-03-07 15:00 | A.OFFPC_ITS ---
Vital Signs 03/07/24 15:05 Height 5 ft 9 in Weight 301 lb 6 oz BMI 44.5 BP 139/68 Blood Pressure Location Rt brachial Position Sitting Respiration 16 Pulse 95 Pulse Source Pulse Oximeter Temp 97.2 F Temp Source Temporal Artery Scan Pulse Oximetry (%) 98 Oxygen Delivery Method Room Air Intake Visit Reasons: Hypertension Intake Note: F/U HTN Allergies codeine [CODEINE] Allergy (Unknown, Verified 03/07/24 15:05) ITCHING morphine [MORPHINE] Allergy (Unknown, Verified 03/07/24 15:05) ITCHING venom-honey bee Adverse Reaction (Severe, Verified 03/07/24 15:05) Anaphylaxis Tobacco use date assessed: 12/08/23 Dental Screening Dental Screen Date: 12/08/23 HPI Hypertension HPI Details 53 y/o female presents to f/u elevated B P readings, diabetes. Blood pressure today is 139/68. Last A1c 12/08/23 8.9%. Saw Rustma Vincent 12/08/23 and was advised to take metformin 1000mg in the morning and 500 mg at night along with glipizide at 10mg daily. Had been unable to get Trulicity approved with insurance. Notes she is concerned about her weight. Has ongoing complaints of an eczema. [facility] Medical History Non-toxic multinodular goiter Morbid obesity Hypothyroidism Diabetes Anemia Surgical History Hx of cholecystectomy Family History (Updated 12/08/23 @ 16:09 by LISSET Payne) Father No problems noted. Mother Hypothyroid Multiple sclerosis Sister No problems noted. Daughter No problems noted. Daughter No problems noted. 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 1. Little interest or pleasure in doing things: not at all 2. Feeling down, depressed, or hopeless: not at all 5. Poor appetite or overeating: nearly every day 6. Feeling bad about yourself - or that you are a failure or have let yourself or your family down: not at all 7. Trouble concentrating on things, such as reading the newspaper or watching television: not at all 8. Moving or speaking so slowly that other people could have noticed. Or the opposite - being so fidgety or restless that you have been moving around a lot more than usual: not at all 9. Thoughts that you would be better off or of hurting yourself in some way: not at all Source: Developed by Drs. Raghu Thompson, Naheed Calles, Liban oLza and colleagues, with an educational brandon from [facility]. Thrive Questionnaire Date Thrive assessed: 03/07/24 I am a: Patient What is your living situation today?: I have a steady place to live Within the past 12 months, did the food you bought not last and you didn't have the money to get more?: Never true Within the past 12 months, did you worry whether your food would run out before you got money to buy more?: Often true Do you have trouble paying for medicines?: No Do you have trouble getting transportation to medical appointments?: No Do you have trouble paying your heating and electricity bill?: No Do you have trouble taking care of your child, family member or friend?: No Do you have trouble with day-to-day activities such as bathing, preparing meals, shopping, managing finances, etc.?: No Are you currently unemployed and looking for a job?: No Are you interested in more education?: No Please select the resources that you would like help with: None Currently or been in a relationship where the following occur: I choose not to answer THRIVE Score: 1 AUDIT C Alcohol Use Questionnaire (AUDIT-C) 1. How often do you have a drink containing alcohol?: Monthly or less 2. How many drinks containing alcohol do you have on a typical day when you are drinking?: 1 or 2 3. How often do you have six or more drinks on one occasion?: Never Total Score: 1 DANIEL-7 AMB Questionnaire DANIEL-7 Date DANIEL - 7 assessed: 12/08/23 Feeling nervous, anxious, or on edge: 2 = More than half the days Not being able to stop or control worryin = Not at all Worrying too much about different things: 0 = Not at all Trouble relaxin = More than half the days Being so restless that it is hard to sit still: 0 = Not at all Becoming easily annoyed or irritable: 0 = Not at all Feeling afraid as if something awful might happen: 0 = Not at all Total DANIEL-7 score (0-4 normal; 5-9 mild; 10-14 moderate; 15-21 severe): 4 Source: Developed by Drs. Raghu Thompson, Naheed Calles, Liban Loza and colleagues, with an educational brandon from [facility]. Review of Systems Const Denies chills, Denies fatigue, Denies fever(s), Denies headache(s) and Denies weakness ENT Denies dizziness and Denies headache(s) Card Denies dyspnea Resp Denies cough, Denies dyspnea, Denies wheezing and Denies other (shortness of breath) Musc Denies numbness and Denies tingling Neuro Denies dizziness, Denies headache(s), Denies numbness, Denies tingling and Denies weakness Psych Denies anxiety and Denies depression Endo Denies fatigue Aller/Immun Denies wheezing Physical exam (Primary Care) Vital Signs: Last Vital Signs Temp 97.2 F 03/07/24 15:05 Pulse 95 03/07/24 15:05 Resp 16 03/07/24 15:05 BP 139/68 03/07/24 15:05 Pulse Ox 98 03/07/24 15:05 Oxygen Delivery Method Room Air 03/07/24 15:05 BMI result Body Mass Index 44.5 Tobacco/Smoking Status: Tobacco use Status Tobacco use date assessed 12/08/23 03/07/24 15:00 Patient Tobacco Use Status Former Tobacco user 03/07/24 15:00 e-Cigarette/Vaping Use Never Used 03/07/24 15:00 Thrive Assessment: Date of Thrive Assessment Date Thrive assessed 03/07/24 03/07/24 15:00 Currently or been in a relationship where the following occur: I choose not to answer Const General: well developed; No acute distress Nutritional Appearance: obese morbidly obese Orientation/consciousness: patient oriented x3 HENMT Head: Yes normocephalic and Yes atraumatic Eyes General: appearance normal, both eyes and all related structures Pupils: Equal, round and reactive pupils present EOM: EOMs intact bilaterally Resp Effort & Inspection: normal respiratory effort Auscultation: clear to auscultation bilaterally Cardio Rate: regular rate Rhythm: regular rhythm Heart sounds: S1 normal heart sound present, S2 normal heart sound present, no gallops, no murmurs and no rubs Neuro General: patient oriented x3 and gait normal Cranial nerves: Yes Equal, round and reactive pupils present Psych Affect: normal affect Coding Level of Care Code Est Pt Level 4 (09201) Diagnoses Diabetes type 2, uncontrolled E11.65 Morbid obesity E66.01 Eczema L30.9 Elevated blood pressure reading in office without diagnosis of hypertension R 03.0 Assessment & Plan Assessment & Plan (1) Diabetes type 2, uncontrolled: Code(s): E11.65 - Type 2 diabetes mellitus with hyperglycemia Category: Medical Plan: A1c?was?too?high?at?last?check.??Goal?is?less?than?7.0%. She?had?been?advised?to?increase?metformin?from?1000?mg?daily?to?1500?mg?daily?b ut?she?has?not?made?this?change. She?continues?glipizide?as?prescribed?as?well Had?been?doing?well?on?Trulicit y?but?was?unable?to?get?this?medication?approved?with?insurance.??Now?has?differ ent?insurance.??Will?try?Ozempic?for?better?weight?loss She?will?hold?her?glipizide?and?check?blood?sugars.??If?blood?logan gars?are?still?high?she?can?take?glipizide?as?prescribed (2) Morbid obesity: Code(s): E66.01 - Morbid (severe) obesity due to excess calories Category: Medical Plan: As?above,?trial?Ozempic (3) Eczema: Code(s): L30.9 - Dermatitis, unspecified Category: Medical Plan: Eczema?on?her?leg/ankle?verses?fungal?infection Will?give?her?clotrimazole-betamethasone?cream (4) Elevated blood pressure reading in office without diagnosis of hypertension: Code(s): R03.0 - Elevated blood-pressure reading, without diagnosis of hypertension Category: Medical Plan: She?has?had?fluctuating?blood?pressures?without?a?diagnosis?of?hypertension Will?give?her?a?blood?pressure?monitor?for?home.??She?will?let?me?know?if?blood? pressures?are?high?consistently. Medications: New clotrimazole-betamethasone 1-0.05 % 1 appl topical BID 2 weeks 45 grams 1RF semaglutide (Ozempic) for 4 weeks 0.25 mg (0.368 mL) subcut QWEEK 28 days 1.472 mL 3RF E11.65 - Type 2 diabetes mellitus with hyperglycemia blood pressure monitor Automatic, Digital. Dx: I10. Daily As directed, 999 days/lifetime 1 ea 0RF I10 - Essential (primary) hypertension Refilled lancets (FreeStyle Lancets) As directed 200 ea 4RF DX: E11.9, test blood sugar 2 times a day, 90 day E11.9 - Type 2 diabetes mellitus without complications On Hold glipizide ER Hold Comment: Doctor's Order 10 mg PO DAILY 90 days 90 tabs 2RF
[2024-03-07 15:05] VITALS: BP 139/68; PULSE 95; RESP 16; TEMP 36.2; O2SAT 98; BMI 44.5
== END 2024-03-07 15:47 | disposition home or self-care (01) ==
LOC: HO.HMCFM 14:50
PROVIDERS: PCP Family Medicine; Visit Provider Family Medicine
DX: E11.65 Type 2 diabetes mellitus with hyperglycemia (principal); E66.01 Morbid (severe) obesity due to excess calories; Z68.41 Body mass index [BMI] 40.0-44.9, adult; L30.9 Dermatitis, unspecified; R03.0 Elevated blood-pressure reading, without diagnosis of hypertension

== ENCOUNTER → 2024-03-07 14:49 | Outpatient (BNVA) | payer OTHER, SELFPAY | PROVIDERS: PCP Family Medicine; Visit Provider Family Medicine ==

== ENCOUNTER 2024-03-07 15:42 | Outpatient (REF) | payer OTHER, SELFPAY ==
[2024-03-07 18:05] LABS: TSH reflex Free T4 0.14 uIU/mL (0.32-4.0)
== END 2024-03-07 15:43 | disposition home or self-care (01) ==
LOC: HO.WFDLDS 15:42
PROVIDERS: Visit Provider Nurse Practitioner Family
DX: E11.65 Type 2 diabetes mellitus with hyperglycemia (principal); E66.01 Morbid (severe) obesity due to excess calories; Z68.41 Body mass index [BMI] 40.0-44.9, adult; L30.9 Dermatitis, unspecified; R03.0 Elevated blood-pressure reading, without diagnosis of hypertension
CPT/HCPCS: 36415; 84439; 84443

== ENCOUNTER 2024-05-10 10:50 | Outpatient (AMB) | payer OTHER, SELFPAY ==
--- NOTE | 2024-05-10 11:02 | MHC.PC.OV ---
Vital Signs 05/10/24 11:03 Height 5 ft 9 in Weight 301 lb 6 oz BMI 44.5 BP 146/70 H Blood Pressure Location Rt brachial Position Sitting Respiration 16 Pulse 104 H Pulse Source Pulse Oximeter Temp 97.7 F Temp Source Oral Pulse Oximetry (%) 100 Oxygen Delivery Method Room Air Intake Visit Reasons: dm follow up/cold flu symptoms Allergies codeine [CODEINE] Allergy (Unknown, Verified 03/07/24 15:05) ITCHING morphine [MORPHINE] Allergy (Unknown, Verified 03/07/24 15:05) ITCHING venom-honey bee Adverse Reaction (Severe, Verified 03/07/24 15:05) Anaphylaxis Tobacco use date assessed: 12/08/23 Dental Screening Dental Screen Date: 12/08/23 HPI dm follow up/cold flu symptoms HPI Details 53 y/o female presents to f/u diabetes. Last A1c in December 8.9%. A1c today 05/10/24 is 9.5%. She is on metformin and glipizide. She still has not received her ozempic. Has complaints of a viral illness with symptoms of a fever and a cough. [facility] Medical History Non-toxic multinodular goiter Morbid obesity Hypothyroidism Diabetes Anemia Surgical History Hx of cholecystectomy Family History (Updated 12/08/23 @ 16:09 by LISSET Payne) Father No problems noted. Mother Hypothyroid Multiple sclerosis Sister No problems noted. Daughter No problems noted. Daughter No problems noted. 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 1. Little interest or pleasure in doing things: not at all 2. Feeling down, depressed, or hopeless: not at all 3. Trouble falling or staying asleep, or sleeping too much: more than half the days 4. Feeling tired or having little energy: more than half the days 9. Thoughts that you would be better off or of hurting yourself in some way: not at all Source: Developed by Drs. Raghu Thompson, Naheed Calles, Liban Loza and colleagues, with an educational brandon from [employer]. Thrive Questionnaire Date Thrive assessed: 03/07/24 I am a: Patient What is your living situation today?: I have a steady place to live Within the past 12 months, did the food you bought not last and you didn't have the money to get more?: Never true Within the past 12 months, did you worry whether your food would run out before you got money to buy more?: Never true Do you have trouble paying for medicines?: I choose not to answer this question Do you have trouble getting transportation to medical appointments?: No Do you have trouble paying your heating and electricity bill?: No Do you have trouble taking care of your child, family member or friend?: No Do you have trouble with day-to-day activities such as bathing, preparing meals, shopping, managing finances, etc.?: No Are you currently unemployed and looking for a job?: No Are you interested in more education?: No Please select the resources that you would like help with: None Currently or been in a relationship where the following occur: No concerns reported THRIVE Score: 0 AUDIT C Alcohol Use Questionnaire (AUDIT-C) 1. How often do you have a drink containing alcohol?: Never Total Score: 0 DANIEL-7 AMB Questionnaire DANIEL-7 Date DANIEL - 7 assessed: 12/08/23 Feeling nervous, anxious, or on edge: 0 = Not at all Not being able to stop or control worryin = Not at all Worrying too much about different things: 0 = Not at all Trouble relaxin = Not at all Being so restless that it is hard to sit still: 0 = Not at all Becoming easily annoyed or irritable: 0 = Not at all Feeling afraid as if something awful might happen: 0 = Not at all Total DANIEL-7 score (0-4 normal; 5-9 mild; 10-14 moderate; 15-21 severe): 0 Source: Developed by Drs. Raghu Thompson, Naheed Calles, Liban Loza and colleagues, with an educational brandon from [employer]. Review of Systems Const Denies fatigue, Reports fever(s), Denies headache(s) and Denies weakness ENT Denies dizziness and Denies headache(s) Card Denies dyspnea Resp Reports cough, Denies dyspnea and Denies wheezing Musc Denies numbness and Denies tingling Neuro Denies dizziness, Denies headache(s), Denies numbness, Denies tingling and Denies weakness Psych Denies anxiety and Denies depression Endo Denies fatigue Aller/Immun Denies wheezing Physical exam (Primary Care) Vital Signs: Last Vital Signs Temp 97.7 F 05/10/24 11:03 Pulse 104 H 05/10/24 11:03 Resp 16 05/10/24 11:03 BP 146/70 H 05/10/24 11:03 Pulse Ox 100 05/10/24 11:03 Oxygen Delivery Method Room Air 05/10/24 11:03 BMI result Body Mass Index 44.5 Tobacco/Smoking Status: Tobacco use Status Tobacco use date assessed 12/08/23 05/10/24 11:04 Patient Tobacco Use Status Former Tobacco user 05/10/24 11:04 e-Cigarette/Vaping Use Never Used 05/10/24 11:04 Thrive Assessment: Date of Thrive Assessment Date Thrive assessed 03/07/24 05/10/24 11:04 Currently or been in a relationship where the following occur: No concerns reported Const General: well developed; No acute distress Nutritional Appearance: well nourished and obese morbidly obese Orientation/consciousness: patient oriented x3 [facility] Head: Yes normocephalic and Yes atraumatic Eyes General: appearance normal, both eyes and all related structures Pupils: Equal, round and reactive pupils present EOM: EOMs intact bilaterally Resp Effort & Inspection: normal respiratory effort Neuro General: patient oriented x3 and gait normal Cranial nerves: Yes Equal, round and reactive pupils present Psych Affect: normal affect Coding Level of Care Code Tele Est Pt Level 4 (10725) Diagnoses Diabetes type 2, uncontrolled E11.65 Viral illness B34.9 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 She?is?still?taking?metformin?but?higher?doses?have?caused?GI?discomfort.??She?is?still?taking?glipizide?ER?10?mg?daily?as?prescribed. Will?give?her?a?script?for?Lantus?10?units?q.p.m.. She?can?check?her?blood?check?her?blood?sugars?at?night?for?the?1st?several?days?to?ensure?she?is?not?getting?low?blood?sugars. Continue?metformin?and?glipizide?as?prescribed Call?for?any?problems Close?[id number]?see?her?back?in?month (2) Viral illness: Code(s): B34.9 - Viral infection, unspecified Category: Medical Plan: Cough?and?fever. Lungs?are?clear. Likely?viral?illness.??No?evidence?pneumonia?or?bacterial?infection. Checking?swab?for?COVID/flu/RSV Encouraged?fluids?and?plenty?of?rest.??Should?resolve?spontaneously (3) Hypothyroidism: Code(s): E03.9 - Hypothyroidism, unspecified Category: Medical Qualifiers: Hypothyroidism type: due to Allie's thyroiditis Qualified Code(s): E03.8 - Other specified hypothyroidism; E06.3 - Autoimmune thyroiditis Plan TSH?appears?suppressed. Will?recheck?this?with?next?blood?draw Medications: New pen needle, diabetic (BD Ultra-Fine Micro Pen Needle) to treat blood sugar Daily, As directed, 90 days 100 ea 3RF E11.65 - Type 2 diabetes mellitus with hyperglycemia insulin glargine (Lantus Solostar U-100 Insulin) 10 units (0.1 mL) subcut QPM 3 mL 3RF 30 days Refilled blood-glucose meter (FreeStyle Lite Meter kit) DX: E11.9, test blood sugar 2 times a day, duration 999 days 1 ea 0RF E11.9 - Type 2 diabetes mellitus without complications
[2024-05-10 11:03] VITALS: BP 146/70; PULSE 104; RESP 16; TEMP 36.5; O2SAT 100; BMI 44.5
== END 2024-05-10 11:30 | disposition home or self-care (01) ==
PROVIDERS: PCP Family Medicine; Visit Provider Family Medicine
DX: E11.65 Type 2 diabetes mellitus with hyperglycemia (principal); B34.9 Viral infection, unspecified; E03.8 Other specified hypothyroidism; E06.3 Autoimmune thyroiditis

== ENCOUNTER 2024-05-10 10:50 | Outpatient (REF) | payer OTHER, SELFPAY ==
[2024-05-10 15:06] LABS: Influenza A PCR NEGATIVE (Negative); Influenza B PCR NEGATIVE (Negative); Resp Syncy Virus RNA Qual PCR NEGATIVE (Negative); SARS COV2 PCR INHOUSE POSITIVE (Negative)
== END 2024-05-10 10:51 | disposition home or self-care (01) ==
LOC: HO.LAB 10:50
PROVIDERS: PCP Family Medicine; Visit Provider Family Medicine
DX: E11.65 Type 2 diabetes mellitus with hyperglycemia (principal); B34.9 Viral infection, unspecified; R05.1 Acute cough
CPT/HCPCS: 0241U; 83036

== ENCOUNTER 2025-03-26 15:41 | Emergency (ER) | payer OTHER, SELFPAY ==
[2025-03-26 16:07] VITALS: BP 167/84; PULSE 111; RESP 18; TEMP 36.3; O2SAT 98; BMI 43.6
--- NOTE | 2025-03-26 16:09 | ED.ABDPAIN ---
HPI - Abdominal Pain General Chief Complaint: GI Bleed Stated Complaint: rectal bleeding, dizziness Time Seen by Provider: 03/26/25 21:01 Source: patient, RN notes reviewed and old records reviewed Mode of arrival: ambulatory Limitations: no limitations History of Present Illness ED Provider: Kaylah DRIVER narrative: 54-year-old female presents for evaluation of bright red bloody stool. She reports that her symptoms started 2 days ago. She does have a history of hemorrhoids but reports that she does not feel that hemorrhoid. Her hemorrhoids are also usually painful in her rectal bleeding today is painless. She reports a very mild abdominal discomfort She states that she has no abdominal pain but keeps reiterating that she has a small discomfort She is not anticoagulated. She has never had a colonoscopy No other complaints or concerns at this time Related Data Home Medications ?Medication ?Instructions ?Recorded ?Confirmed clonazepam 0.5 mg tablet 0.5 mg PO BID PRN 03/30/20 12/08/23 ibuprofen 800 mg tablet 800 mg PO Q8H 03/30/20 12/08/23 nortriptyline 25 mg capsule 25 mg PO BEDTIME 04/20/20 12/08/23 multivitamin with minerals-folic tab PO 05/18/20 12/08/23 acid 200 mcg chewable tablet (Adult Multivitamin Gummies) ascorbic acid (vitamin C) 1,000 mg 1 g PO Q6H 06/19/20 12/08/23 tablet cholecalciferol (vitamin D3) 25 25 mcg PO DAILY 06/19/20 12/08/23 mcg (1,000 unit) capsule Previous Rx's ?Medication ?Instructions ?Recorded sumatriptan succinate 25 mg tablet See Rx Instructions PO .COMPLEX #8 08/13/22 tabs acetaminophen 500 mg tablet 500 mg PO Q6H PRN pain #30 tabs 09/30/23 (Tylenol Extra Strength) blood sugar diagnostic (FreeStyle #200 ea 12/08/23 Lite Strips) blood pressure monitor #1 ea 03/07/24 clotrimazole-betamethasone 1 1 appl topical BID 2 weeks #45 03/07/24 %-0.05 % topical cream grams lancets 28 gauge (FreeStyle #200 ea 03/07/24 Lancets) semaglutide 0.25 mg or 0.5 mg (2 0.25 mg (0.368 mL) subcut QWEEK 28 03/07/24 mg/3 mL) subcutaneous pen injector days #1.472 mL (Ozempic) blood-glucose meter (FreeStyle #1 ea 05/10/24 Lite Meter kit) insulin glargine 100 unit/mL (3 10 unit (0.1 mL) subcut QPM 30 05/10/24 mL) subcutaneous pen (Lantus days #3 mL Solostar U-100 Insulin) pen needle, diabetic 32 gauge x #100 ea 05/10/2405/11 (BD Ultra-Fine Micro Pen Needle) metformin 500 mg tablet See Rx Instructions PO BID 90 days 06/21/24 #270 tabs glipizide 10 mg tablet, extended 10 mg PO DAILY 90 days #90 tabs 12/11/24 release 24 hr levothyroxine 125 mcg tablet 250 mcg (2 x 125 mcg) PO DAILY 90 03/13/25 days #180 tabs hydrocortisone acetate 25 mg 25 mg ME BID 5 days #12 ea 03/26/25 rectal suppository (Anucort-HC) Allergies Allergy/AdvReac Type Severity Reaction Status Date / Time codeine (CODEINE) Allergy Unknown ITCHING Verified 03/26/25 16:08 morphine (MORPHINE) Allergy Unknown ITCHING Verified 03/26/25 16:08 venom-honey bee AdvReac Severe Anaphylaxis Verified 03/26/25 16:08 Review of Systems Constitutional: Denies body ache(s), Denies chills, Denies fever(s) and Denies headache(s) Denies vertigo and Denies headache(s) Cardiovascular: Denies chest pain Gastrointestinal: Denies abdominal pain, Denies melena, Reports hematochezia, Denies nausea and Denies vomiting Musculoskeletal: Denies back pain Skin/Breast: Denies rash Denies vertigo and Denies headache(s) REPLACED BY [facility] Past Medical History Medical History Non-toxic multinodular goiter Morbid obesity Hypothyroidism Diabetes Anemia Surgical History Hx of cholecystectomy Family History Family History (Updated 12/08/23 @ 16:09 by LISSET Payne) Father No problems noted. Mother Hypothyroid Multiple sclerosis Sister No problems noted. Daughter No problems noted. Daughter No problems noted. 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 Current occupational exposures/hazards: No Cognitive needs: No Hearing needs: No Vision needs: No Physical Exam ED Vital Signs: Vital Signs - 24 hr 03/26/25 16:07 03/26/25 20:19 03/26/25 21:44 Temperature 97.3 F 98.8 F 98.7 F Pulse Rate 111 H 98 97 Respiratory Rate 18 20 16 Blood Pressure 167/84 H 148/72 H 154/92 H Pulse Oximetry 98 99 99 Oxygen Delivery Method Room Air Room Air Room Air 03/26/25 21:49 Temperature 98.7 F Pulse Rate 97 Respiratory Rate 16 Blood Pressure 154/92 H Pulse Oximetry 99 Oxygen Delivery Method Room Air BMI result Body Mass Index 43.6 Const General: healthy appearing, comfortable, no acute distress, alert and awake Nutritional Appearance: well nourished Orientation/consciousness: patient oriented x3 HENMT Head: Yes normocephalic and Yes atraumatic Eyes Eyelids: Yes eyelids normal Conjunctivae: conjunctivae normal Sclerae: sclerae normal Corneas: corneas normal Pupils: Equal, round and reactive pupils present EOM: EOMs intact bilaterally Neck Neck: Yes full ROM Resp Effort & Inspection: normal respiratory effort, able to speak in complete sentences and not labored GI Inspection: No distended Palpation (GI): Soft to palpation, not firm, nontender, no guarding and not rigid Rectal Exam - Female: visual inspection normal, normal sphincter tone and other (Small palpable lesion, about 1 cm at the 3 o'clock position) Skin General skin exam: elasticity normal Neuro General: patient oriented x3 Cranial nerves: Yes Equal, round and reactive pupils present and Yes Bilaterally intact EOM present Cognition (Neuro): normal cognition Extrem Other: Moving all extremities well without any obvious deformities Course Course Course Narrative: This is a Rapid Medical Exam performed in triage by Karley Garrison PA-C. Full HPI, ROS and PE to be performed by primary ED provider. 54yo F w/pmhx DM, obesity, hypohyroid, anemia, presents to the ED c/o brbpr x2 days w/some abdominal discomfort. +assoc dizziness x4-5 weeks. Also reports CP yesterday & palpitations PE: anxious, abdomen soft & nontender. Ambulating with steady case Plan: EKG, labs, UA, occult stool Medical Decision Making Medical Decision Making [facility] Narrative: 54-year-old female presents for evaluation of bright red rectal bleeding. She had has a history of hemorrhoids but reports this feels different. She is hemodynamically stable, she is not hypotensive or tachycardic. Her blood counts are within normal limits an infection hemoglobin is actually higher than she has been in the last 4 years. The patient has no fever, no leukocytosis in his no abdominal tenderness on exam. I have a lower suspicion for diverticulitis being the cause of her rectal bleeding. Ultimately, we will discharge the patient with GI follow up and she will be given any saw green Differential Diagnosis Differential Diagnoses: The differential diagnosis associated with the presentation includes Internal hemorrhoids External hemorrhoids Bright red rectal bleeding Diverticular bleed Diverticulitis Lab Data [facility] Lab Attestation statement: I reviewed the patient's lab results. As above 03/26/25 17:04 03/26/25 17:04 Labs: Lab Results 03/26/25 Range/Units 17:04 WBC 8.4 (4.8-10.8) X10*3/uL RBC 5.45 (4.20-5.50) X10*6/uL Hgb 13.0 (12.0-16.0) g/dl Hct 42.3 (37.0-47.0) % MCV 77.6 L (80.0-98.0) fL MCH 23.9 L (27.0-33.0) pg MCHC 30.7 L (31.0-35.0) g/dl RDW 17.1 H (11.0-16.0) % Plt Count 329 (160-400) X10*3/uL MPV 10.1 (9.4-12.3) fL Immature Gran % (Auto) 0.5 H (0.0-0.4) % Neut % (Auto) 61.6 (45-73) % Lymph % (Auto) 31.8 (20-40) % Gaines % (Auto) 4.6 (2-11) % Eos % (Auto) 0.9 (0-4) % Baso % (Auto) 0.6 (0-2) % Lymph # (Auto) 2.7 (1.2-4.9) X10*3/uL Gaines # (Auto) 0.4 (0.1-1.2) X10*3/uL Eos # (Auto) 0.1 (0.0-0.4) X10*3/uL Baso # (Auto) 0.1 (0.0-0.2) X10*3/uL Abs Immat Gran (auto) 0.04 H (0.00-0.03) X10*3/uL Absolute Neuts (auto) 5.2 (2.0-8.3) x10*3/uL Absolute Nucleated RBC 0.000 (0.0-0.012) X10*3/uL Nucleated RBC % (auto) 0.0 (0.0-0.2) /100WBC Sodium 138 (135-145) mmol/L Potassium 4.1 (3.3-5.1) mmol/L Chloride 103 (96-108) mmol/L Carbon Dioxide 26 (22-29) mmol/L Anion Gap 13 (12-20) BUN 19 H (9-16) mg/dL Creatinine 0.61 (0.5-1.4) mg/dL Estim Creat Clear Calc 151.6 Estimated GFR > 60 Random Glucose 161 H (60-115) mg/dL Calcium 9.6 (8.4-10.2) mg/dL Magnesium 1.9 (1.6-2.6) mg/dL Total Bilirubin 0.5 (0.0-1.0) mg/dL Direct Bilirubin 0.2 (0.0-0.5) mg/dL AST 50 H (5-31) U/L ALT 54 H (0-31) U/L Alkaline Phosphatase 74 (39-117) U/L Troponin I High Sens < 2.7 (<3.5-17.0) ng/L Total Protein 7.6 (6.5-8.0) g/dL Albumin 4.3 (3.5-5.0) g/dL TSH 0.15 L (0.32-4.0) uIU/mL Free T4 1.39 (0.71-1.85) ng/dL Urine Color Yellow Urine Appearance Clear Urine pH 6.5 (5.0-9.0) Ur Specific [place] 1.010 (1.005-1.025) Urine Protein Negative (Neg-Trace) mg/dL Urine Glucose (UA) Negative (Negative) mg/dL Urine Ketones Trace (Negative) mg/dL Urine Blood Negative (Negative) Urine Nitrite Negative (Negative) Ur Leukocyte Esterase Negative (Negative) Urine Test NEGATIVE (NEGATIVE) Tests considered The following testing was considered but not selected: Consider CT scan of the abdomen pelvis but ultimately had low suspicion for acute diverticulitis Discharge Plan Discharge Clinical Impression: Bright red rectal bleeding Patient Disposition: Home, Self-Care Instructions: Rectal Bleeding (ED) Additional Instructions: Your workup in the ER today was reassuring. Your blood counts were within normal limits. Your symptoms are likely related to internal hemorrhoids pain Take the Anusol suppository as prescribed. I recommend that you follow up with GI for a colonoscopy Return for new or worsening symptoms, especially if you notice significant bleeding or clots You would also benefit from a stool softener Prescriptions: New hydrocortisone acetate [Anucort-HC] 25 mg suppository 25 mg ME BID 5 Days Qty: 12 0RF No Action metformin 500 mg tablet See Rx Instructions PO BID 90 Days Qty: 270 0RF Rx Instructions: 1000 mg a.m. and 500 mg p.m. PO 2 times a day; glipizide 10 mg tablet extended release 24hr 10 mg PO DAILY 90 Days Qty: 90 2RF levothyroxine 125 mcg tablet 250 mcg PO DAILY 90 Days Qty: 180 0RF acetaminophen [Tylenol Extra Strength] 500 mg tablet 500 mg PO Q6H PRN (Reason: pain) Qty: 30 0RF nortriptyline 25 mg capsule 25 mg PO BEDTIME Adult Multivitamin Gummies 200 mcg tablet,chewable PO cholecalciferol (vitamin D3) 25 mcg (1,000 unit) capsule 25 mcg PO DAILY ascorbic acid (vitamin C) 1,000 mg tablet 1 g PO Q6H clonazepam 0.5 mg tablet 0.5 mg PO BID PRN ibuprofen 800 mg tablet 800 mg PO Q8H sumatriptan succinate 25 mg tablet See Rx Instructions PO .COMPLEX Qty: 8 0RF Rx Instructions: take 1 tab at onset of headache; if no relief may repeat 1 tab after at least 2 hrs; max = 4 tabs/24 hr PO (DME) FreeStyle Lite Strips Strip See Rx Instructions .MEDSUPPLY Qty: 200 4RF Rx Instructions: DX: E11.9, test blood sugar 2 times a day, 90 days (DME) blood-glucose meter [FreeStyle Lite Meter] Kit See Rx Instructions .MEDSUPPLY Qty: 1 0RF Rx Instructions: DX: E11.9, test blood sugar 2 times a day, duration 999 days insulin glargine [Lantus Solostar U-100 Insulin] 100 unit/mL (3 mL) insulin pen 10 unit subcut QPM 30 Days Qty: 3 3RF (DME) pen needle, diabetic [BD Ultra-Fine Micro Pen Needle] 32 gauge x 1/4 needle See Rx Instructions .ROUTE .MEDSUPPLY Qty: 100 3RF Rx Instructions: to treat blood sugar Daily, As directed, 90 days clotrimazole-betamethasone 1-0.05 % cream 1 appl topical BID 14 Days Qty: 45 1RF (DME) blood pressure monitor Kit See Rx Instructions .ROUTE .MEDSUPPLY Qty: 1 0RF Rx Instructions: Automatic, Digital. Dx: I10. Daily As directed, 999 days/lifetime Ozempic 0.25 mg or 0.5 mg (2 mg/3 mL) pen injector 0.25 mg subcut QWEEK 28 Days Qty: 1.472 3RF Rx Instructions: for 4 weeks (DME) lancets [FreeStyle Lancets] [facility] See Rx Instructions .MEDSUPPLY Qty: 200 4RF Rx Instructions: As directed Referrals: [facility] [place] G[facility]enter[facility] Services [Provider Group, Gastroenterology] Referral Note: bright red rectal bleeding Interventions: ED Discharge Assessment Last Done: 03/26/25 21:49 Discharge Date/Time: 03/26/25 21:50 Print Language: Scottish
--- NOTE | 2025-03-26 16:15 | ECG_ITS ---
Test Reason : PALPITATION Blood Pressure : */* mmHG Vent. Rate : 110 BPM Atrial Rate : 110 BPM P-R Int : 168 ms QRS Dur : 76 ms QT Int : 338 ms P-R-T Axes : 26 -11 40 degrees QTcB Int : 457 ms Sinus tachycardia Minimal voltage criteria for LVH, may be normal variant ( R in aVL ) Inferior infarct , age undetermined Cannot rule out Anterior infarct , age undetermined Abnormal ECG When compared with ECG of 20-Oct-2023 11:26, Inferior infarct is now Present Referred By: Karley Garrison Electronically Signed By: JUSTUS MANCERA
[2025-03-26 17:10] LABS: MANUAL DIFF FLAG NO
[2025-03-26 17:11] LABS: Hematocrit 42.3 % (37.0-47.0); Hemoglobin 13.0 g/dl (12.0-16.0); Imm Gran Abs Auto 0.04 X10*3/uL (0.00-0.03); Imm Gran Pct Auto 0.5 % (0.0-0.4); Lymphocytes Absolute Auto 2.7 X10*3/uL (1.2-4.9); Mean Corpuscular HGB Conc 30.7 g/dl (31.0-35.0); Mean Corpuscular Hemoglobin 23.9 pg (27.0-33.0); Mean Corpuscular Volume 77.6 fL (80.0-98.0); NRBC Abs Auto 0.000 X10*3/uL (0.0-0.012); NRBC Pct Auto 0.0 /100WBC (0.0-0.2); Platelet Count 329 X10*3/uL (160-400); Red Blood Count 5.45 X10*6/uL (4.20-5.50); White Blood Count 8.4 X10*3/uL (4.8-10.8)
[2025-03-26 17:19] LABS: Appearance Urine Clear; Glucose Urine UA Negative (Negative); PH 6.5 (5.0-9.0); Specific Gravity - Urine 1.010 (1.005-1.025); UPreg QC Valid YES
[2025-03-26 17:37] LABS: Alanine Aminotransferase 54 U/L (0-31); Albumin Level 4.3 g/dL (3.5-5.0); Alkaline Phosphatase 74 U/L (39-117); Anion Gap 13 (12-20); Aspartate Amino Transferase 50 U/L (5-31); Blood Urea Nitrogen 19 mg/dL (9-16); Calcium 9.6 mg/dL (8.4-10.2); Carbon Dioxide 26 mmol/L (22-29); Chloride 103 mmol/L (96-108); Creatinine Clr Calc Pharmacy 151.6; Estimated Glomerular Filt Rate > 60; Magnesium 1.9 mg/dL (1.6-2.6); Potassium 4.1 mmol/L (3.3-5.1); Sodium 138 mmol/L (135-145); Total Protein 7.6 g/dL (6.5-8.0)
[2025-03-26 17:39] LABS: Troponin-I High Sensitivity < 2.7 ng/L (<3.5-17.0)
[2025-03-26 19:36] LABS: Free T4 (Free Thyroxine) 1.39 ng/dL (0.71-1.85)
[2025-03-26 20:19] VITALS: BP 148/72; PULSE 98; RESP 20; TEMP 37.1; O2SAT 99
[2025-03-26 21:44] VITALS: BP 154/92; PULSE 97; RESP 16; TEMP 37.1; O2SAT 99
[2025-03-26 21:49] VITALS: BP 154/92; PULSE 97; RESP 16; TEMP 37.1; O2SAT 99
[2025-03-26 23:11] LABS: OBS Int Ctl Valid YES; OBS1 POSITIVE (NEGATIVE)
--- OUTSIDE RECORDS SUMMARY | 2025-03-27 05:20 | XMS_ITS | Patient Health Record ---
Author Organization [facility] Address [address] [place] [address] Care Team Providers Care Slag Wheeler Name Role Phone Eliseo Hi Primary Care Provider Rex Watkins Jr Unavailable [phone] Allergies Allergen (clinical drug ingredient) Drug/Non Drug Allergy documented on EMR Reaction Allergy Type Onset Date Status amoxicillin Amoxicillin Unknown Drug Allergy Act poonam codeine Codeine Sulfate Unknown Drug Allergy A ctive morphine Morphine Sulfate Unknown Drug Allergy Active Reason For Referral No Information Medications Medication SIG (Take, Route, Frequency, Duration) Notes Start Date End Date Status clonazePAM 0.5 MG Tablet 1 tablet Orally PRN Active Nortriptyline HCl 25 MG Capsule 1 capsule Orally Once a day Active Levothyroxine Sodium 200 MCG Tablet 1 tablet Orally Once a day Active Naproxen 500 MG Tablet 1 tablet as neede d Orally every 12 hrs Active Suprep Bowel Prep 1 Solution as directed Orally 1; Duration: 1 dose 07/03/2014 Active Social History Social History Additional Details Category Social Info Options Details Miscellaneous: Marital status: single 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 Problems Problem Type SNOMED Code ICD Code Onset Dates Problem Status W/U Status Risk Notes Problem Rectal bleeding (98291208) Rectal bleeding (569.3) Active confirmed Problem Iron deficiency anemia (78028150) Iron deficiency anemia (280.9) Active confirmed Plan Of Treatment Future Test Test Name Order Date COLONOSCOPY 07/03/2014 Insurance Providers Payer Name Payer Address Payer Phone Subscriber Number Group Number Insured Name Patient Relationship to Insured Coverage Start Date Coverage End Date [employer] [address] GIAN ANAYA, OSMAR [address] [id number] AIDA CAO Self - patient is the insured Medical (General) History Medical History History ICD Code anxiety/depression hypothyroidism Surgical History Surgery Date(Month/Year) appendectomy 2005
== END 2025-03-26 21:50 | disposition home or self-care (01) ==
PROVIDERS: Physician Assistant; Emergency Provider Emergency Medicine; PCP Family Medicine
DX: K62.5 Hemorrhage of anus and rectum (principal); R42 Dizziness and giddiness; R00.2 Palpitations; R00.0 Tachycardia, unspecified
CPT/HCPCS: 36415; 80048; 80076; 81003; 81025; 82272; 83735; 84439; 84443; 84484; 85025; 93005; 99283; 99284

== ENCOUNTER → 2025-03-26 16:15 | Outpatient (BNV) | payer OTHER, SELFPAY | PROVIDERS: Emergency Provider Emergency Medicine; PCP Family Medicine; Visit Provider Internal Medicine | DX: R00.0 Tachycardia, unspecified (principal) | CPT/HCPCS: 93010 ==

== ENCOUNTER 2025-04-09 14:43 | Outpatient (AMB) | payer OTHER, SELFPAY ==
--- NOTE | 2025-04-09 14:46 | MHC.PC.OV ---
Vital Signs 04/09/25 14:49 Height 5 ft 9 in Weight 292 lb 4 oz BMI 43.2 BP 136/75 Blood Pressure Location Lt brachial Position Sitting Respiration 12 Pulse 110 H Pulse Source Pulse Oximeter Temp 97.2 F Temp Source Oral Pulse Oximetry (%) 100 Oxygen Delivery Method Room Air Intake Visit Reasons: [place] [facility] [place]: Follow up from [facility]. Patient c/o her stomach and has been detox her body. Occupational Therapist Aide Required: No Allergies codeine (CODEINE) Allergy (Unknown, Verified 04/09/25 14:46) ITCHING morphine (MORPHINE) Allergy (Unknown, Verified 04/09/25 14:46) ITCHING venom-honey bee Adverse Reaction (Severe, Verified 04/09/25 14:46) Anaphylaxis Tobacco use date assessed: 04/09/25 Dental Screening Dental Screen Date: 04/09/25 Did you have a dental visit in the last 12 months?: Yes Did you have a dental problem in the last 6 months where you did not have access to dental care?: No Was dental information given to patient?: Patient has dentist HPI [place] [facility] [place] HPI Details 54 y/o female presents to f/u ED visit for rectal bleeding. Hx of hemorrhoids. Had reported bright red blood x2 days. Blood count was within normal limits. Denied any fevers, abd. tenderness. A1c today 04/29/25 is 8.2%. Pt notes she has only been taking metformin, glipizide. Does not have a GI appt. scheduled. Pt does note abd. bloating. HPI Comments History of Present Illness Details Documentation assistance for Chucho Coombs MD, was provided by Louis Gibson,? Weight Tester on 04/09/2025 at 3:11 PM EST. I, Dr. Coombs, have read, observed, and verified documentation. ?? [facility] Medical History Non-toxic multinodular goiter Morbid obesity Hypothyroidism Diabetes Anemia Surgical History Hx of cholecystectomy Family History (Updated 12/08/23 @ 16:09 by LISSET Payne) Father No problems noted. Mother Hypothyroid Multiple sclerosis Sister No problems noted. Daughter No problems noted. Daughter No problems noted. 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 1. Little interest or pleasure in doing things: not at all 2. Feeling down, depressed, or hopeless: not at all 3. Trouble falling or staying asleep, or sleeping too much: not at all 4. Feeling tired or having little energy: not at all 5. Poor appetite or overeating: not at all 6. Feeling bad about yourself - or that you are a failure or have let yourself or your family down: not at all 7. Trouble concentrating on things, such as reading the newspaper or watching television: not at all 8. Moving or speaking so slowly that other people could have noticed. Or the opposite - being so fidgety or restless that you have been moving around a lot more than usual: not at all Depression Screening Interpretation: Negative Depression Screening Done: Yes 29190 - PHQ-9 Billing: Yes Source: Developed by Drs. Raghu Thompson, Naheed Calles, Liban Loza and colleagues, with an educational brandon from [employer]. Thrive Questionnaire Date Thrive assessed: 04/09/25 I am a: Patient What is your living situation today?: I have a steady place to live Within the past 12 months, did the food you bought not last and you didn't have the money to get more?: Never true Within the past 12 months, did you worry whether your food would run out before you got money to buy more?: Never true Do you have trouble paying for medicines?: I choose not to answer this question Do you have trouble getting transportation to medical appointments?: No Do you have trouble paying your heating and electricity bill?: No Do you have trouble taking care of your child, family member or friend?: No Do you have trouble with day-to-day activities such as bathing, preparing meals, shopping, managing finances, etc.?: No Are you currently unemployed and looking for a job?: No Are you interested in more education?: No Please select the resources that you would like help with: None Currently or been in a relationship where the following occur: No concerns reported THRIVE Score: 0 AUDIT C Alcohol Use Questionnaire (AUDIT-C) 2. How many drinks containing alcohol do you have on a typical day when you are drinking?: 1 or 2 3. How often do you have six or more drinks on one occasion?: Never Total Score: 0 DANIEL-7 AMB Questionnaire DANIEL-7 Date DANIEL - 7 assessed: 04/09/25 Feeling nervous, anxious, or on edge: 0 = Not at all Not being able to stop or control worryin = Not at all Worrying too much about different things: 0 = Not at all Trouble relaxin = Not at all Being so restless that it is hard to sit still: 0 = Not at all Becoming easily annoyed or irritable: 0 = Not at all Feeling afraid as if something awful might happen: 0 = Not at all Total DANIEL-7 score (0-4 normal; 5-9 mild; 10-14 moderate; 15-21 severe): 0 Source: Developed by Drs. Raghu Thompson, Naheed Calles, Liban Loza and colleagues, with an educational brandon from [employer]. DANIEL-7 Assessment Billing DANIEL-7 Assessment Tool: DANIEL-7 Assessment 73506 Review of Systems Const Denies chills, Denies fatigue, Denies fever(s), Denies headache(s) and Denies weakness ENT Denies dizziness and Denies headache(s) Card Denies dyspnea Resp Denies cough, Denies dyspnea, Denies wheezing and Denies other (shortness of breath) Musc Denies numbness and Denies tingling Neuro Denies dizziness, Denies headache(s), Denies numbness, Denies tingling and Denies weakness Psych Denies anxiety and Denies depression Endo Denies fatigue Aller/Immun Denies wheezing Physical exam (Primary Care) Vital Signs: Last Vital Signs Temp 97.2 F 04/09/25 14:49 Pulse 110 H 04/09/25 14:49 Resp 12 04/09/25 14:49 BP 136/75 04/09/25 14:49 Pulse Ox 100 04/09/25 14:49 Oxygen Delivery Method Room Air 04/09/25 14:49 BMI result Body Mass Index 43.2 Tobacco/Smoking Status: Tobacco use Status Tobacco use date assessed 04/09/25 04/09/25 14:52 Patient Tobacco Use Status Former Tobacco user 04/09/25 14:52 e-Cigarette/Vaping Use Never Used 04/09/25 14:52 Depression Screening Interpretation: Negative Thrive Assessment: Date of Thrive Assessment Date Thrive assessed 04/09/25 04/09/25 14:52 Currently or been in a relationship where the following occur: No concerns reported Const General: well developed; No acute distress Nutritional Appearance: obese morbidly obese Orientation/consciousness: patient oriented x3 HENMT Head: Yes normocephalic and Yes atraumatic Eyes General: appearance normal, both eyes and all related structures Pupils: Equal, round and reactive pupils present EOM: EOMs intact bilaterally Resp Effort & Inspection: normal respiratory effort Neuro General: patient oriented x3 and gait normal Cranial nerves: Yes Equal, round and reactive pupils present Psych Affect: normal affect Results AMB Hemoglobin A1c AMB Hemoglobin A1c 8.2 % Last Edit by Bharati Dueñas MA on 04/09/25 15:02 Results Reviewed Results Reviewed: Laboratory Last Values Hgb A1c (Clinic) 8.2 % (4.0-6.0) H 04/09/25 14:53 Coding Level of Care Code Est Pt Level 4 (39603) Diagnoses Bright red rectal bleeding K62.5 Diabetes type 2, uncontrolled E11.65 Abdominal bloating R14.0 Sinus tachycardia R00.0 Additional Codes DANIEL-7 Assessment Billing - DANIEL-7 Assessment Tool: DANIEL-7 Assessment 76216 ([id number]) PHQ-9 - 91424 - PHQ-9 Billing: Yes ([id number]) Assessment & Plan Assessment & Plan (1) Bright red rectal bleeding: Code(s): K62.5 - Hemorrhage of anus and rectum Category: Medical Plan: The ED had checked H&H and did not see need to keep patient in the hospital. Discharge with recommendation to follow-up with Gastroenterology Referred to GI (2) Diabetes type 2, uncontrolled: Code(s): E11.65 - Type 2 diabetes mellitus with hyperglycemia Category: Medical Plan: Patient notes that she never started Lantus. Also she has only been taking metformin 1000 mg q.a.m. and was not taking the 500 mg dose in the evening. She is taking glipizide each morning A1c today 8.2% which is poor control. Goal is less than 7% She will take metformin 1000 mg q.a.m. and 500 mg q.p.m. She will take glipizide ER 10 mg q.a.m. Will follow-up in 3 months. We had tried Ozempic in the past and could try another GLP 1 medication if blood sugars are not well controlled. (3) Abdominal bloating: Code(s): R14.0 - Abdominal distension (gaseous) Category: Medical Plan: Patient will try bowel rest and then advance diet as tolerated Call or return to office if not improved She is also referred to Gastroenterology (4) Sinus tachycardia: Code(s): R00.0 - Tachycardia, unspecified Category: Medical Plan: Patient notes that her EKG at the emergency department at been abnormal She has a history of palpitations and also tachycardia. Heart rate today 110 and improves to 105 bpm with relaxation Patient is concerned because she says she had an abnormal EKG at the ED Repeat EKG today shows sinus tachycardia, 105 beats per minute, voltage criteria for LVH, poor R-wave progression, no ST-T-wave changes. No evidence of ischemia or infarction. Orders: Orders AMB Hemoglobin A1c Today E11.65 - Type 2 diabetes mellitus with hyperglycemia Referrals Gastroenterology Referral K62.5 - Hemorrhage of anus and rectum
[2025-04-09 14:49] VITALS: BP 136/75; PULSE 110; RESP 12; TEMP 36.2; O2SAT 100; BMI 43.2
--- OUTSIDE RECORDS SUMMARY | 2025-04-09 17:37 | XMS_ITS | Patient Health Record ---
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 Problems Problem Type SNOMED Code ICD Code Onset Dates Problem Status W/U Status Risk Notes Problem Rectal bleeding (18197215) Rectal bleeding (569.3) Active confirmed Problem Iron deficiency anemia (37297987) Iron deficiency anemia (280.9) Active confirmed Plan Of Treatment Future Test Test Name Order Date COLONOSCOPY 07/03/2014 Insurance Providers Payer Name Payer Address Payer Phone Subscriber Number Group Number Insured Name Patient Relationship to Insured Coverage Start Date Coverage End Date [employer] [address] [place], [place] [address] [id number] AIDA CAO Self - patient is the insured Medical (General) History Medical History History ICD Code anxiety/depression hypothyroidism Surgical History Surgery Date(Month/Year) appendectomy 2005
== END 2025-04-09 15:46 | disposition home or self-care (01) ==
LOC: HO.HMCFM 14:44
PROVIDERS: PCP Family Medicine; Visit Provider Family Medicine
DX: K62.5 Hemorrhage of anus and rectum (principal); E11.65 Type 2 diabetes mellitus with hyperglycemia; R14.0 Abdominal distension (gaseous); R00.0 Tachycardia, unspecified

== ENCOUNTER → 2025-04-09 14:43 | Outpatient (BNVA) | payer OTHER, SELFPAY | PROVIDERS: PCP Family Medicine; Visit Provider Family Medicine | DX: E11.65 Type 2 diabetes mellitus with hyperglycemia (principal); K62.5 Hemorrhage of anus and rectum; R14.0 Abdominal distension (gaseous); R00.0 Tachycardia, unspecified | CPT/HCPCS: 83036; 96127 ==